=== PATIENT | female | born 1995 | race African-American/Black ===

== ENCOUNTER 2018-05-28 22:28 | Emergency (ER) | payer SELFPAY ==
[2018-05-28 22:48] VITALS: BP 104/68
[2018-05-28] MEDS ORDERED: KETOROLAC TROMETHAMINE INJ/PF 30 MG/1 ML SDV IV ONE (23:36)
--- NOTE | 2018-05-28 23:37 | ER Document Report ---
ED Medical Screen (RME) - General Chief Complaint: Nausea/Vomiting/Diarrhea Stated Complaint: NAUSEA/VOMITING Time Seen by Provider: 05/28/18 23:36 Notes: 22 years old female presents today with multiple complaints including left chest wall pain for a month, tachycardia, abdominal pain nausea and diarrhea. This is been going on for the last 2-3 days. TRAVEL OUTSIDE OF THE [place] IN LAST 30 DAYS: No - Related Data Allergies/Adverse Reactions: amoxicillin trihydrate [From Augmentin] Allergy (Verified 10/21/16 10:58) Potassium Clavulanate * [From Augmentin] Allergy (Verified 10/21/16 10:58) Past Medical History Pulmonary Medical History: Reports: Hx Asthma Neurological Medical History: Reports: Hx Migraine Renal/ Medical History: Reports: Hx Ovarian Cysts Psychiatric Medical History: Reports: Hx Depression Past Surgical History: Reports: Hx Adenoidectomy, Hx Orthopedic Surgery - Left shoulder x3, Hx Tonsillectomy - Immunizations Immunizations up to date: Yes Hx Diphtheria, Pertussis, Tetanus Vaccination: No Physical Exam - Vital signs Vitals: Temp Pulse Resp BP Pulse Ox 98.0 F 74 16 104/68 100 05/28/18 22:47 05/28/18 22:47 05/28/18 22:47 05/28/18 22:47 05/28/18 22:47 Course - Vital Signs Vital signs: Temp Pulse Resp BP Pulse Ox 98.0 F 74 16 104/68 100 05/28/18 22:47 05/28/18 22:47 05/28/18 22:47 05/28/18 22:47 05/28/18 22:47
[2018-05-28 23:54] LABS: ABSOLUTE EOSINOPHILS # (AUTO) 0.1 10^3/uL (0.0-0.6); ABSOLUTE MONOCYTES (AUTO) 0.7 10^3/uL (0.1-1.4); ABSOLUTE NEUT (AUTO) 3.3 10^3/uL (1.7-8.2); BASOPHILS % (AUTO) 0.4 % (0-2); EOSINOPHILS % (AUTO) 0.8 % (0-6); HEMATOCRIT 41.6 % (36.0-47.0); LYMPHOCYTES % (AUTO) 42.3 % (13-45); MEAN CORPUSCULAR HEMOGLOBIN 28.1 pg (27.0-33.4); MEAN CORPUSCULAR HGB CONC 33.5 g/dL (32.0-36.0); MEAN CORPUSCULAR VOLUME 84 fl (80-97); PLATELET COUNT 206 10^3/uL (150-450); RED BLOOD COUNT 4.96 10^6/uL (3.72-5.28); RED CELL DISTRIBUTION WIDTH 17.1 % (11.5-14.0); SEGMENTED NEUTROPHILS % (AUTO) 46.5 % (42-78); TOTAL CELLS COUNTED % (AUTO) 100 %
[2018-05-29 00:13] LABS: ALANINE AMINOTRANSFERASE 26 U/L (9-52); ALBUMIN 3.5 g/dL (3.5-5.0); ALKALINE PHOSPHATASE 88 U/L (38-126); ANION GAP 8 (5-19); ASPARTATE AMINO TRANSFERASE 20 U/L (14-36); BILIRUBIN,DIRECT 0.3 mg/dL (0.0-0.4); BILIRUBIN,TOTAL 0.3 mg/dL (0.2-1.3); BLOOD UREA NITROGEN 8 mg/dL (7-20); CALCIUM 8.8 mg/dL (8.4-10.2); CARBON DIOXIDE 28 mmol/L (22-30); CHLORIDE 104 mmol/L (98-107); GLUCOSE 75 mg/dL (75-110); POTASSIUM 3.5 mmol/L (3.6-5.0); SODIUM 140.4 mmol/L (137-145); TOTAL PROTEIN 6.7 g/dL (6.3-8.2)
--- NOTE | 2018-05-29 00:20 | ER Document Report ---
ED General - General Chief Complaint: Nausea/Vomiting/Diarrhea Stated Complaint: NAUSEA/VOMITING Time Seen by Provider: 05/28/18 23:36 Mode of Arrival: Ambulatory Information source: Patient Notes: 22-year-old female presents emergency department with complaints of left-sided chest wall pain that has been ongoing for the last month. It is intermittent in nature. Patient denies any alleviating or exacerbating factors. Patient states that the pain is worse with movement, palpation, coughing, deep breaths. She denies any alleviating factors. Patient has also had abdominal pain, nausea, vomiting, diarrhea for the last 3 days. TRAVEL OUTSIDE OF THE [place] IN LAST 30 DAYS: No - HPI Onset: Other - 1 month Onset/Duration: Gradual Quality of pain: Achy, Stabbing, Throbbing Severity: Moderate Associated symptoms: Diarrhea, Nausea, Vomiting Exacerbated by: Movement, Coughing, Deep breathing Relieved by: Denies Similar symptoms previously: Yes Recently seen / treated by doctor: No - Related Data Allergies/Adverse Reactions: amoxicillin trihydrate [From Augmentin] Allergy (Verified 10/21/16 10:58) Potassium Clavulanate * [From Augmentin] Allergy (Verified 10/21/16 10:58) Past Medical History - Social History Smoking Status: Never Smoker Family History: Reviewed & Not Pertinent, Other - ASTHMA Pulmonary Medical History: Reports: Hx Asthma Neurological Medical History: Reports: Hx Migraine Renal/ Medical History: Reports: Hx Ovarian Cysts Psychiatric Medical History: Reports: Hx Depression Past Surgical History: Reports: Hx Adenoidectomy, Hx Orthopedic Surgery - Left shoulder x3, Hx Tonsillectomy - Immunizations Immunizations up to date: Yes Hx Diphtheria, Pertussis, Tetanus Vaccination: No Review of Systems - Review of Systems Constitutional: No symptoms reported EENT: No symptoms reported Cardiovascular: No symptoms reported Respiratory: No symptoms reported Gastrointestinal: Abdominal pain, Diarrhea, Nausea, Vomiting Genitourinary: No symptoms reported Female Genitourinary: No symptoms reported Musculoskeletal: No symptoms reported Skin: No symptoms reported Hematologic/Lymphatic: No symptoms reported Neurological/Psychological: No symptoms reported -: Yes All other systems reviewed and negative Physical Exam - Vital signs Vitals: Temp Pulse Resp BP Pulse Ox 98.0 F 74 16 104/68 100 05/28/18 22:47 05/28/18 22:47 05/28/18 22:47 05/28/18 22:47 05/28/18 22:47 Interpretation: Normal - Notes Notes: PHYSICAL EXAMINATION: GENERAL: Well-appearing, well-nourished and in no acute distress. HEAD: Atraumatic, normocephalic. EYES: Pupils equal round and reactive to light, extraocular movements intact, conjunctiva are normal. ENT: Nares patent, oropharynx clear without exudates. Moist mucous membranes. NECK: Normal range of motion, supple without lymphadenopathy LUNGS: Breath sounds clear to auscultation bilaterally and equal. No wheezes rales or rhonchi. HEART: Regular rate and rhythm without murmurs. L anterior chest wall tenderness to palpation. ABDOMEN: Soft, nontender, nondistended abdomen. No guarding, no rebound. No masses appreciated. Female : deferred Musculoskeletal: Normal range of motion, no pitting or edema. No cyanosis. NEUROLOGICAL: Cranial nerves grossly intact. Normal speech, normal gait. Normal sensory, motor exams PSYCH: Normal mood, normal affect. SKIN: Warm, Dry, normal turgor, no rashes or lesions noted. Course - Re-evaluation Re-evalutation: 05/29/18 01:18 Patient feeling better after toradol. Chest xray does not show an acute process. Patient likely has costochondritis as she has reproducible chest wall tenderness to palpation. She has had this in the past and says that the pain feels similar in nature. Patient instructed to take anti-inflammatories for symptom relief, to follow-up with her primary care physician this week, and to return to the emergency department for any worsening symptoms. Patient is agreeable with the plan of care. - Vital Signs Vital signs: Temp Pulse Resp BP Pulse Ox 98.0 F 74 16 104/68 100 05/28/18 22:47 05/28/18 22:47 05/28/18 22:47 05/28/18 22:47 05/28/18 22:47 - Laboratory Result Diagrams: 05/28/18 23:20 05/28/18 23:20 Laboratory results interpreted by me: 05/28/18 05/28/18 23:20 23:20 RDW 17.1 H Potassium 3.5 L - EKG Interpretation by Me Additional EKG results interpreted by me: 05/29/18 00:15 EKG: Ventricular rate 75, IN interval 184, QRS duration 82, QTc 425, normal sinus rhythm, no ischemic changes. EKG similar to that done on 01/25/15. Discharge - Discharge Clinical Impression: Acute costochondritis Condition: Good Disposition: HOME, SELF-CARE Instructions: Costochondritis ([facility]) Prescriptions: Naproxen 500 mg PO BID #15 tablet
[2018-05-29 00:29] LABS: URINE AMPHETAMINES SCREEN NEGATIVE; URINE BARBITURATES SCREEN NEGATIVE; URINE BENZODIAZEPINES SCREEN NEGATIVE; URINE COCAINE SCREEN NEGATIVE; URINE MARIJUANA (THC) SCREEN UNCONFIRMED POSITIVE; URINE METHADONE SCREEN NEGATIVE; URINE PHENCYCLIDINE SCREEN NEGATIVE
--- NOTE | 2018-05-29 01:08 | RADIOLOGY REPORT (SQ) ---
CXR- 1 VIEW Clinical history: Chest pain Comparison: None. Technique: 1 view of the chest submitted for review. Findings: The lungs are adequately expanded without evidence of infiltrate and/or effusion. The cardiac silhouette measures borderline enlarged allowing for portable upright technique. Pulmonary vascularity is unremarkable. Osseous structures are within normal limits for age. There are some circular metallic density which looks like a neck lists or bracelet overlying the soft tissues of the left side of the neck limiting evaluation. Impression: Borderline cardiomegaly allowing for portable upright technique in this patient with chest pain.
[2018-05-29] MEDS ORDERED: HYDROCODONE/ACETAMINOPHEN 5-325 MG TABLET PO ONE (02:28)
--- NOTE | 2018-05-29 21:40 | EKG REPORT ---
SEVERITY:- NORMAL ECG - SINUS RHYTHM : Confirmed by: Halina Leone MD 29-May-2018 21:38:54
== END 2018-05-29 02:43 | disposition home or self-care (01) ==
LOC: ER 22:28
DX: M94.0 Chondrocostal junction syndrome [Tietze] (principal); R07.89 Other chest pain; R10.9 Unspecified abdominal pain; R11.2 Nausea with vomiting, unspecified; R19.7 Diarrhea, unspecified; J45.909 Unspecified asthma, uncomplicated; Z88.0 Allergy status to penicillin
CPT/HCPCS: 93005; 99285; 96374; 36415; 85025; 81025; 80053; 80307; 71045; 93010; J1885

== ENCOUNTER 2019-03-03 10:43 | Emergency (ER) | payer MEDICAID ==
[2019-03-03] MEDS ORDERED: IPRATROPIUM/ALBUTEROL 0.5-2.5 MG/3 ML AMPUL NEB ONE (11:39)
--- NOTE | 2019-03-03 11:42 | ER Document Report ---
ED Medical Screen (RME) - General Chief Complaint: Breathing Difficulty Stated Complaint: DIFFICULTY BREATHING Time Seen by Provider: 03/03/19 11:32 Mode of Arrival: Ambulatory TRAVEL OUTSIDE OF THE [place] IN LAST 30 DAYS: No - HPI Patient complains to provider of: Shortness of breath Notes: 03/03/19 11:40 Patient is here with complaints of feeling short of breath. The patient is currently . She does have a history of asthma. She states that she woke up around 4 AM feeling short of breath. She still feels short of breath. She denies any chest pain. No fever. She is used her rescue inhalers at home with no significant improvement. She denies any abdominal pain. No bleeding. She denies any recent long trips or surgeries, history of DVT or PE. She denies any other chronic medical problems. Exam: Patient is in no distress, nontoxic appearing. Lungs are clear but slightly diminished in the bilateral bases. Plan: Basic labs, EKG, breathing treatment, reevaluation by staff in the back. An initial examination was made on the patient as part of the triage process, and it was determined a more comprehensive evaluation was necessary. Initial labs were ordered and patient was transferred to another provider in the ED who assumed care and finished evaluation and plan. - Related Data Allergies/Adverse Reactions: amoxicillin trihydrate [From Augmentin] Allergy (Verified 03/03/19 10:48) Potassium Clavulanate * [From Augmentin] Allergy (Verified 03/03/19 10:48) Past Medical History - Social History Frequency of alcohol use: None Drug Abuse: None Pulmonary Medical History: Reports: Hx Asthma Neurological Medical History: Reports: Hx Migraine Renal/ Medical History: Reports: Hx Ovarian Cysts. Denies: Hx Peritoneal Dialysis Psychiatric Medical History: Reports: Hx Depression Past Surgical History: Reports: Hx Adenoidectomy, Hx Orthopedic Surgery - Left shoulder x3, Hx Tonsillectomy - Immunizations Immunizations up to date: Yes Hx Diphtheria, Pertussis, Tetanus Vaccination: No Physical Exam - Vital signs Vitals: Temp Pulse Resp BP Pulse Ox 98.5 F 104 H 16 110/70 97 03/03/19 11:00 03/03/19 11:00 03/03/19 11:00 03/03/19 11:00 03/03/19 11:00 Course - Vital Signs Vital signs: Temp Pulse Resp BP Pulse Ox 98.5 F 104 H 16 110/70 97 03/03/19 11:00 03/03/19 11:00 03/03/19 11:00 03/03/19 11:00 03/03/19 11:00
[2019-03-03 12:00] LABS: ABSOLUTE EOSINOPHILS # (AUTO) 0.1 10^3/uL (0.0-0.6); ABSOLUTE MONOCYTES (AUTO) 0.6 10^3/uL (0.1-1.4); ABSOLUTE NEUT (AUTO) 7.6 10^3/uL (1.7-8.2); BASOPHILS % (AUTO) 0.2 % (0-2); EOSINOPHILS % (AUTO) 1.1 % (0-6); HEMATOCRIT 37.4 % (36.0-47.0); HEMOGLOBIN 12.6 g/dL (12.0-15.5); LYMPHOCYTES % (AUTO) 19.3 % (13-45); MEAN CORPUSCULAR HEMOGLOBIN 28.5 pg (27.0-33.4); MEAN CORPUSCULAR HGB CONC 33.6 g/dL (32.0-36.0); MEAN CORPUSCULAR VOLUME 85 fl (80-97); MONOCYTES % (AUTO) 6.1 % (3-13); PLATELET COUNT 183 10^3/uL (150-450); RED BLOOD COUNT 4.41 10^6/uL (3.72-5.28); RED CELL DISTRIBUTION WIDTH 16.1 % (11.5-14.0); SEGMENTED NEUTROPHILS % (AUTO) 73.3 % (42-78); TOTAL CELLS COUNTED % (AUTO) 100 %; WHITE BLOOD COUNT 10.3 10^3/uL (4.0-10.5)
[2019-03-03 12:25] LABS: ALANINE AMINOTRANSFERASE 17 U/L (9-52); ALKALINE PHOSPHATASE 70 U/L (38-126); ASPARTATE AMINO TRANSFERASE 17 U/L (14-36); BILIRUBIN,DIRECT 0.1 mg/dL (0.0-0.4); BILIRUBIN,TOTAL 0.1 mg/dL (0.2-1.3); BLOOD UREA NITROGEN 8 mg/dL (7-20); CALCIUM 9.4 mg/dL (8.4-10.2); GLUCOSE 77 mg/dL (75-110); POTASSIUM 3.6 mmol/L (3.6-5.0)
[2019-03-03 12:30] LABS: CARBON DIOXIDE 24 mmol/L (22-30); CHLORIDE 108 mmol/L (98-107); SODIUM 135.8 mmol/L (137-145)
[2019-03-03 12:34] LABS: ANION GAP 4 (5-19)
[2019-03-03 13:08] VITALS: BP 112/60
--- NOTE | 2019-03-03 17:44 | ER Document Report ---
Entered by LAURA THIBODEAUX SCRIBE 03/03/19 0524 Acting as scribe for:MARY MACKEY MD ED General - General Chief Complaint: Breathing Difficulty Stated Complaint: DIFFICULTY BREATHING Time Seen by Provider: 03/03/19 11:32 Primary Care Provider: [facility] [Provider Group] - Follow up as needed Mode of Arrival: Ambulatory Information source: Patient Notes: Patient is a 23-year-old female presenting to the emergency department complaint of shortness of breath onset around 0400 this morning. Patient states she woke up from her sleep having difficulty breathing. She states she used her rescue inhaler 2 times although it did not alleviate her symptoms. She states she currently feels better after receiving a breathing treatment. Patient reports being approximately 3-1/2 months . She is taking vitamins. TRAVEL OUTSIDE OF THE [place] IN LAST 30 DAYS: No - Related Data Allergies/Adverse Reactions: amoxicillin trihydrate [From Augmentin] Allergy (Verified 03/03/19 10:48) Potassium Clavulanate * [From Augmentin] Allergy (Verified 03/03/19 10:48) Past Medical History - General Information source: Patient - Social History Smoking Status: Never Smoker Cigarette use (# per day): No Chew tobacco use (# tins/day): No Frequency of alcohol use: None Drug Abuse: None Family History: Reviewed & Not Pertinent, Other - ASTHMA Patient has suicidal ideation: No Patient has homicidal ideation: No Pulmonary Medical History: Reports: Hx Asthma Neurological Medical History: Reports: Hx Migraine Renal/ Medical History: Reports: Hx Ovarian Cysts Psychiatric Medical History: Reports: Hx Depression Past Surgical History: Reports: Hx Adenoidectomy, Hx Orthopedic Surgery - Left shoulder x3, Hx Tonsillectomy - Immunizations Immunizations up to date: Yes Hx Diphtheria, Pertussis, Tetanus Vaccination: No Review of Systems - Review of Systems Constitutional: No symptoms reported EENT: No symptoms reported Cardiovascular: No symptoms reported Respiratory: See HPI, Short of breath Gastrointestinal: No symptoms reported Genitourinary: No symptoms reported Female Genitourinary: See HPI, Musculoskeletal: No symptoms reported Skin: No symptoms reported Hematologic/Lymphatic: No symptoms reported Neurological/Psychological: No symptoms reported -: Yes All other systems reviewed and negative Physical Exam - Vital signs Vitals: Temp Pulse Resp BP Pulse Ox 98.5 F 104 H 16 110/70 97 03/03/19 11:00 03/03/19 11:00 03/03/19 11:00 03/03/19 11:00 03/03/19 11:00 - Notes Notes: GENERAL: Alert, interacts well. No acute distress. HEAD: Normocephalic, atraumatic. EYES: Pupils equal, round, and reactive to light. Extraocular movements intact. ENT: Oral mucosa moist, tongue midline. NECK: Full range of motion. Supple. Trachea midline. LUNGS: Clear to auscultation bilaterally, no wheezes, rales, or rhonchi. No respiratory distress. HEART: Regular rate and rhythm. No murmurs, gallops, or rubs. ABDOMEN: Soft, non-tender. Non-distended. Bowel sounds present in all 4 quadrants. No guarding, rigidity, or rebound. EXTREMITIES: Moves all 4 extremities spontaneously. No edema. NEUROLOGICAL: Alert and oriented x3. Normal speech. PSYCH: Normal affect, normal mood. SKIN: Warm, dry, normal turgor. No rashes or lesions noted. Course - Vital Signs Vital signs: Temp Pulse Resp BP Pulse Ox 98.5 F 104 H 16 110/70 97 03/03/19 11:00 03/03/19 11:00 03/03/19 11:00 03/03/19 11:00 03/03/19 11:00 - Laboratory Result Diagrams: 03/03/19 11:46 03/03/19 11:46 Laboratory results interpreted by me: 03/03/19 03/03/19 11:46 11:46 RDW 16.1 H Sodium 135.8 L Chloride 108 H Anion Gap 4 L Total Bilirubin 0.1 L Total Protein 6.0 L Albumin 3.0 L Discharge - Discharge Clinical Impression: Asthma exacerbation, mild Condition: Stable Disposition: HOME, SELF-CARE Additional Instructions: Asthma You have been diagnosed as having asthma. This is a condition where there is episodic tightness in the bronchial tubes. Allergies, infections, and polluted or cold air may be contributing factors. Emergency treatment of a severe asthma attack may include adrenaline shots, or bronchodilator aerosol. You may feel lightheaded, have a decreased exercise tolerance and a rapid pulse for an hour or two. Rest and get plenty of fluids. Home treatment of asthma requires bronchodilator drugs. These can be administered by injection, inhalation, or by mouth. Antibiotics and corticosteroids may be required for some patients. You should avoid chemical fumes, dusts, pollens, and exercising in very cold or dry air. If you smoke, stop!! If you develop a fever, increased wheezing, chest pain, or severe shortness of breath, you should contact the doctor immediately Use the nebulizer for wheezing when needed. Be sure you always have an albuterol rescue inhaler with you when you leave your house. Follow-up with [facility] for your care, and management of your asthma if needed. RETURN TO THE EMERGENCY ROOM IF ANY NEW OR WORSENING SYMPTOMS. Prescriptions: Albuterol Sulfate [Ventolin 0.083% Neb 2.5 mg/3 mL Ampul] 1 vial NEB Q4 PRN #50 vial PRN Reason: Referrals: [facility] [Provider Group] - Follow up as needed Scribe Attestation: 03/03/19 12:52 I personally performed the services described in the documentation, reviewed and edited the documentation which was dictated to the scribe in my presence, and it accurately records my words and actions. I personally performed the services described in the documentation, reviewed and edited the documentation which was dictated to the scribe in my presence, and it accurately records my words and actions.
--- NOTE | 2019-03-03 20:02 | EKG REPORT ---
SEVERITY:- ABNORMAL ECG - SINUS RHYTHM PROBABLE LEFT ATRIAL ABNORMALITY PROBABLE LEFT VENTRICULAR HYPERTROPHY ABNORMAL T, CONSIDER ISCHEMIA, INFERIOR LEADS : Confirmed by: Halina Leone MD 03-Mar-2019 20:00:47
== END 2019-03-03 13:08 | disposition home or self-care (01) ==
LOC: ER 10:43
DX: O99.512 Diseases of the respiratory system complicating pregnancy, second trimester (principal); J45.21 Mild intermittent asthma with (acute) exacerbation; O26.892 Other specified pregnancy related conditions, second trimester; R06.02 Shortness of breath; Z3A.14 14 weeks gestation of pregnancy
CPT/HCPCS: 93005; 94640; 99285; 36415; 85025; 80053; 93010; J7620

== ENCOUNTER 2019-07-04 18:28 | Outpatient (CLI) | payer MEDICAID ==
[2019-07-04 19:27] LABS: URINE AMPHETAMINES SCREEN NEGATIVE; URINE BARBITURATES SCREEN NEGATIVE; URINE BENZODIAZEPINES SCREEN NEGATIVE; URINE COCAINE SCREEN NEGATIVE; URINE MARIJUANA (THC) SCREEN NEGATIVE; URINE METHADONE SCREEN NEGATIVE; URINE PHENCYCLIDINE SCREEN NEGATIVE
[2019-07-04 19:38] LABS: APPEARANCE,URINE SLIGHTLY-CLOUDY; BILIRUBIN,URINE NEGATIVE (NEGATIVE); COLOR,URINE YELLOW; GLUCOSE, URINE NEGATIVE (NEGATIVE); KETONES,URINE NEGATIVE (NEGATIVE); LEUKOCYTE ESTERASE,URINE TRACE (NEGATIVE); NITRITE,URINE NEGATIVE (NEGATIVE); PROTEIN,URINE NEGATIVE (NEGATIVE); URINE SPECIFIC GRAVITY 1.011; UROBILINOGEN,URINE NEGATIVE mg/dL (<2.0)
[2019-07-04] MEDS ORDERED: ACETAMINOPHEN WITH CODEINE #3 TABLET PO ONE (20:48)
--- NOTE | 2019-07-04 21:00 | Non Stress Test Report ---
Non Stress Test Datetime Report Generated by CPN: 07/04/2019 21:00 DEMOGRAPHIC EGA NST: 35.2 INDICATION Indication for Study: Ordered by Provider URINE RESULTS Urine Protein, NST: Negative Urine Ketones - NST: Negative Urine Glucose - NST: Negative Urine Blood - NST: Negative MONITORING Monitor Explained: Monitor Explained; Test Explained; Patient Verbalized Understanding Time on Monitor: 07/04/2019 19:09 Time off Monitor: 07/04/2019 20:44 NST Duration: 95 NST INTERVENTIONS NST Interventions: PO Hydration Physician Notified NST: Dr. Zhao BABY A: [id number] BABY A Movement : Present Contraction Frequency : Occasional FHR Baseline : 140 Accelerations : 15X15 Decelerations : None Variability : Moderate 6-25bpm NST Review: Meets Criteria for Reactive NST NST Review and Verified By : Hesham Goldman RN NST Results: Reactive NST REPORT Report Trigger: Send Report
[2019-07-04] MEDS ORDERED: ACETAMINOPHEN WITH CODEINE #3 TABLET ONE (21:17)
== END 2019-07-04 21:23 | disposition home or self-care (01) ==
LOC: LC 18:28
PROVIDERS: ATTEND Obstetrics & Gynecology
PROC: 4A1HXCZ Monitoring of Products of Conception, Cardiac Rate, External Approach (ICD-10-PCS; principal; 2019-07-04)
DX: O47.03 False labor before 37 completed weeks of gestation, third trimester (principal); Z3A.35 35 weeks gestation of pregnancy
CPT/HCPCS: 59025; 80307; 81001

== ENCOUNTER 2019-07-18 17:07 | Outpatient (CLI) | payer MEDICAID ==
[2019-07-18 18:02] LABS: ABSOLUTE LYMPHOCYTES (AUTO) 2.6 10^3/uL (0.5-4.7); ABSOLUTE NEUT (AUTO) 7.3 10^3/uL (1.7-8.2); BASOPHILS % (AUTO) 0.1 % (0-2); EOSINOPHILS % (AUTO) 0.2 % (0-6); HEMATOCRIT 38.2 % (36.0-47.0); HEMOGLOBIN 12.8 g/dL (12.0-15.5); LYMPHOCYTES % (AUTO) 23.6 % (13-45); MEAN CORPUSCULAR HEMOGLOBIN 29.2 pg (27.0-33.4); MEAN CORPUSCULAR HGB CONC 33.6 g/dL (32.0-36.0); MEAN CORPUSCULAR VOLUME 87 fl (80-97); MONOCYTES % (AUTO) 9.4 % (3-13); PLATELET COUNT 157 10^3/uL (150-450); RED BLOOD COUNT 4.39 10^6/uL (3.72-5.28); RED CELL DISTRIBUTION WIDTH 15.6 % (11.5-14.0); SEGMENTED NEUTROPHILS % (AUTO) 66.7 % (42-78); TOTAL CELLS COUNTED % (AUTO) 100 %; WHITE BLOOD COUNT 10.9 10^3/uL (4.0-10.5)
[2019-07-18 18:10] LABS: INTERNATIONAL RATION (INR) 0.98
[2019-07-18 18:11] LABS: PARTIAL THROMBOPLASTIN TIME 25.1 SEC (23.5-35.8)
[2019-07-18 18:21] LABS: APPEARANCE,URINE SLIGHTLY-CLOUDY; BILIRUBIN,URINE NEGATIVE (NEGATIVE); COLOR,URINE YELLOW; GLUCOSE, URINE NEGATIVE (NEGATIVE); KETONES,URINE NEGATIVE (NEGATIVE); LEUKOCYTE ESTERASE,URINE SMALL (NEGATIVE); NITRITE,URINE NEGATIVE (NEGATIVE); PROTEIN,URINE NEGATIVE (NEGATIVE); URINE SPECIFIC GRAVITY 1.012; UROBILINOGEN,URINE NEGATIVE mg/dL (<2.0)
[2019-07-18 18:31] LABS: URINE AMPHETAMINES SCREEN NEGATIVE; URINE BARBITURATES SCREEN NEGATIVE; URINE BENZODIAZEPINES SCREEN NEGATIVE; URINE COCAINE SCREEN NEGATIVE; URINE MARIJUANA (THC) SCREEN NEGATIVE; URINE METHADONE SCREEN NEGATIVE; URINE PHENCYCLIDINE SCREEN NEGATIVE
--- NOTE | 2019-07-18 19:44 | RADIOLOGY REPORT (SQ) ---
EXAM DESCRIPTION: U/S OB LIMITED COMPLETED DATE/TIME: 07/18/2019 7:12 pm REASON FOR STUDY: sp fall onto bottom COMPARISON: None. TECHNIQUE: Limited transabdominal grayscale ultrasound for evaluation of specific requested obstetri angel parameters. LIMITATIONS: None. FINDINGS: CERVICAL LENGTH: 3.0 cm Closed. JUAN FRANCISCO: 15.4 cm. FHR: 144 beats per minute. PRESENTATION: Cephalic. PLACENTA: Anterior ANATOMY: Not assessed OTHER: No other significant findings. IMPRESSION: LIMITED OBSTETRICAL ULTRASOUND WITH MEASURED PARAMETERS DELINEATED ABOVE. Trimester of : Third trimester - 28 weeks to delivery. TECHNICAL DOCUMENTATION: JOB ID: [id number] [employer]- All Rights Reserved Reading location - IP/workstation name: [email or web address]
[2019-07-18] MEDS ORDERED: ACETAMINOPHEN WITH CODEINE #3 TABLET PO ONE (20:00)
[2019-07-18] MEDS ORDERED: ACETAMINOPHEN WITH CODEINE #3 TABLET ONE (20:14)
[2019-07-18 21:31] LABS: RHOGAM DOSE INDICATED 0 VIAL(S)
== END 2019-07-18 23:48 | disposition home or self-care (01) ==
LOC: LC 17:07
PROVIDERS: ATTEND Student in an Organized Health Care Education/Training Program
PROC: 4A1HXCZ Monitoring of Products of Conception, Cardiac Rate, External Approach (ICD-10-PCS; principal; 2019-07-18)
DX: O9A.213 Injury, poisoning and certain other consequences of external causes complicating pregnancy, third trimester (principal); Z3A.37 37 weeks gestation of pregnancy; W19.XXXA Unspecified fall, initial encounter
CPT/HCPCS: 36415; 59025; 76815; 80307; 81005; 85025; 85460; 85610; 85730

== ENCOUNTER 2019-08-05 16:29 | Emergency (ER) | payer MEDICAID ==
[2019-08-05 16:48] VITALS: BP 117/64
--- NOTE | 2019-08-05 16:55 | ER Document Report ---
ED Medical Screen (RME) - General Chief Complaint: Chest Pain Stated Complaint: CHEST PAIN Time Seen by Provider: 08/05/19 16:47 Primary Care Provider: MARCELO YODER MD [Primary Care Provider] - Follow up as needed Mode of Arrival: Wheelchair Information source: Patient Notes: This 23-year-old female G2, P0 40 weeks presents emergency department with chest pain that started this morning upon waking. Mom reports she heard her coughing last night. Denies abdominal pain. Denies trauma. Reports she did fall and slip at [facility] July 18. She was evaluated in L&D at that time. No history of cardiac disease but she does have asthma. I have greeted and performed a rapid initial assessment of this patient. A comprehensive ED assessment and evaluation of the patient, analysis of test results and completion of the medical decision making process will be conducted by additional ED providers. Dictation of this chart was performed using voice recognition software; therefore, there may be some unintended grammatical errors. TRAVEL OUTSIDE OF THE [place] IN LAST 30 DAYS: No - Related Data Allergies/Adverse Reactions: amoxicillin trihydrate [From Augmentin] Allergy (Verified 08/05/19 16:31) Potassium Clavulanate * [From Augmentin] Allergy (Verified 08/05/19 16:31) Past Medical History Pulmonary Medical History: Reports: Hx Asthma Neurological Medical History: Reports: Hx Migraine Renal/ Medical History: Reports: Hx Ovarian Cysts. Denies: Hx Peritoneal Dialysis Psychiatric Medical History: Reports: Hx Depression Past Surgical History: Reports: Hx Adenoidectomy, Hx Orthopedic Surgery - Left shoulder x3, Hx Tonsillectomy - Immunizations Immunizations up to date: Yes Hx Diphtheria, Pertussis, Tetanus Vaccination: No Physical Exam - Vital signs Vitals: Temp Pulse Resp BP Pulse Ox 98.6 F 94 18 117/64 97 08/05/19 16:46 08/05/19 16:46 08/05/19 16:46 08/05/19 16:46 08/05/19 16:46 Course - Vital Signs Vital signs: Temp Pulse Resp BP Pulse Ox 98.6 F 94 18 117/64 97 08/05/19 16:46 08/05/19 16:46 08/05/19 16:46 08/05/19 16:46 08/05/19 16:46 - Laboratory Result Diagrams: 08/05/19 17:04 08/05/19 17:04 Laboratory results interpreted by me: 08/05/19 08/05/19 17:04 17:04 RDW 16.4 H Sodium 135.8 L BUN 5 L Alkaline Phosphatase 150 H Total Protein 5.7 L Albumin 2.9 L Doctor's Discharge - Discharge Referrals: MARCELO YODER MD [Primary Care Provider] - Follow up as needed
[2019-08-05 17:18] LABS: ABSOLUTE LYMPHOCYTES (AUTO) 1.7 10^3/uL (0.5-4.7); ABSOLUTE MONOCYTES (AUTO) 0.7 10^3/uL (0.1-1.4); ABSOLUTE NEUT (AUTO) 7.5 10^3/uL (1.7-8.2); BASOPHILS % (AUTO) 0.2 % (0-2); EOSINOPHILS % (AUTO) 0.2 % (0-6); HEMATOCRIT 39.3 % (36.0-47.0); HEMOGLOBIN 13.2 g/dL (12.0-15.5); LYMPHOCYTES % (AUTO) 16.7 % (13-45); MEAN CORPUSCULAR HEMOGLOBIN 29.3 pg (27.0-33.4); MEAN CORPUSCULAR HGB CONC 33.7 g/dL (32.0-36.0); MEAN CORPUSCULAR VOLUME 87 fl (80-97); MONOCYTES % (AUTO) 7.4 % (3-13); PLATELET COUNT 150 10^3/uL (150-450); RED BLOOD COUNT 4.52 10^6/uL (3.72-5.28); RED CELL DISTRIBUTION WIDTH 16.4 % (11.5-14.0); SEGMENTED NEUTROPHILS % (AUTO) 75.5 % (42-78); TOTAL CELLS COUNTED % (AUTO) 100 %; WHITE BLOOD COUNT 9.9 10^3/uL (4.0-10.5)
[2019-08-05 17:35] LABS: ALBUMIN 2.9 g/dL (3.5-5.0); ALKALINE PHOSPHATASE 150 U/L (38-126); ANION GAP 6 (5-19); ASPARTATE AMINO TRANSFERASE 30 U/L (14-36); BILIRUBIN,DIRECT 0.1 mg/dL (0.0-0.4); BILIRUBIN,TOTAL 0.2 mg/dL (0.2-1.3); BLOOD UREA NITROGEN 5 mg/dL (7-20); CALCIUM 9.3 mg/dL (8.4-10.2); CARBON DIOXIDE 25 mmol/L (22-30); CHLORIDE 105 mmol/L (98-107); CREATINE KINASE 133 U/L (30-135); GLUCOSE 79 mg/dL (75-110); POTASSIUM 3.8 mmol/L (3.6-5.0); TOTAL PROTEIN 5.7 g/dL (6.3-8.2)
--- NOTE | 2019-08-05 17:37 | RADIOLOGY REPORT (SQ) ---
EXAM DESCRIPTION: CHEST 2 VIEWS COMPLETED DATE/TIME: 08/05/2019 5:17 pm REASON FOR STUDY: cp COMPARISON: 08/25/2016 EXAM PARAMETERS: NUMBER OF VIEWS: two views TECHNIQUE: Digital Frontal and Lateral radiographic views of the chest acquired. RADIATION DOSE: NA LIMITATIONS: none FINDINGS: LUNGS AND PLEURA: No opacities, masses or pneumothorax. No pleural effusion. MEDIASTINUM AND HILAR STRUCTURES: No masses or contour abnormalities. HEART AND VASCULAR STRUCTURES: Heart normal size. No evidence for failure. BONES: No acute findings. HARDWARE: None in the chest. OTHER: No other significant finding. IMPRESSION: NO ACUTE RADIOGRAPHIC FINDING IN THE CHEST. TECHNICAL DOCUMENTATION: JOB ID: [id number] [employer]- All Rights Reserved Reading location - IP/workstation name: [email or web address]
--- NOTE | 2019-08-05 18:26 | ER Document Report ---
ED GI/ - General Chief Complaint: Chest Pain Stated Complaint: CHEST PAIN Time Seen by Provider: 08/05/19 16:47 Primary Care Provider: MARCELO YODER MD [Primary Care Provider] - Follow up as needed Mode of Arrival: Wheelchair Information source: Patient Notes: 23-year-old female presented to ED for complaint of chest discomfort. She states she had some discomfort since waking. Mother states she was coughing last night. Patient is a 23-year-old 2 para 0 female who is 40 weeks . She is due tomorrow. She states she went to the [facility] and then was sent to the emergency room to evaluate for her chest discomfort and cough. TRAVEL OUTSIDE OF THE [place] IN LAST 30 DAYS: No - HPI Patient complains to provider of: - 40 weeks, Other - Short of breath and cough Onset: Yesterday Timing/Duration: Gradual Quality of pain: Pressure Severity at maximum: Mild Severity in ED: Mild Pain Level: 6 - [phone] Location: Chest pain - discomfort at 40 weeks with cough Vaginal bleeding (Compared to normal period): None Menstrual period history: - 40 weeks Exacerbated by: Supine, Movement, Coughing Relieved by: Denies Similar symptoms previously: Yes Recently seen / treated by doctor: Yes - Related Data Allergies/Adverse Reactions: amoxicillin trihydrate [From Augmentin] Allergy (Verified 08/05/19 22:14) Potassium Clavulanate * [From Augmentin] Allergy (Verified 08/05/19 22:14) Past Medical History - General Information source: Patient - Social History Smoking Status: Former Smoker Frequency of alcohol use: None Drug Abuse: None Lives with: Family Family History: Reviewed & Not Pertinent, Other - ASTHMA Patient has suicidal ideation: No Patient has homicidal ideation: No - Past Medical History Cardiac Medical History: Reports: None Pulmonary Medical History: Reports: Hx Asthma EENT Medical History: Reports: None Neurological Medical History: Reports: Hx Migraine Endocrine Medical History: Reports: None Renal/ Medical History: Reports: Hx Ovarian Cysts Malignancy Medical History: Reports: None GI Medical History: Reports: None Musculoskeletal Medical History: Reports None Skin Medical History: Reports None Psychiatric Medical History: Reports: Hx Depression Traumatic Medical History: Reports: None Infectious Medical History: Reports: None Past Surgical History: Reports: Hx Adenoidectomy, Hx Orthopedic Surgery - Left shoulder x3, Hx Tonsillectomy - Immunizations Immunizations up to date: Yes Hx Diphtheria, Pertussis, Tetanus Vaccination: No Review of Systems - Review of Systems Constitutional: No symptoms reported EENT: No symptoms reported Cardiovascular: Chest pain - discomfort Respiratory: Cough Gastrointestinal: No symptoms reported Genitourinary: No symptoms reported Female Genitourinary: Musculoskeletal: No symptoms reported Skin: No symptoms reported Hematologic/Lymphatic: No symptoms reported Neurological/Psychological: No symptoms reported -: Yes All other systems reviewed and negative Physical Exam - Vital signs Vitals: Temp Pulse Resp BP Pulse Ox 98.6 F 94 18 117/64 97 08/05/19 16:46 08/05/19 16:46 08/05/19 16:46 08/05/19 16:46 08/05/19 16:46 Interpretation: Normal - General General appearance: Appears well, Alert - HEENT Head: Normocephalic, Atraumatic Eyes: Normal Pupils: PERRL - Respiratory Respiratory status: No respiratory distress Chest status: Nontender Breath sounds: Normal Chest palpation: Normal - Cardiovascular Rhythm: Regular Heart sounds: Normal auscultation Murmur: No - Abdominal Inspection: Gravid female - 40 weeks due tomorrow Distension: No distension Bowel sounds: Normal Tenderness: Nontender Organomegaly: No organomegaly - Back Back: Normal, Nontender - Extremities General upper extremity: Normal inspection, Nontender, Normal color, Normal ROM, Normal temperature General lower extremity: Normal inspection, Nontender, Normal color, Normal ROM, Normal temperature, Normal weight bearing. No: Clarisa's sign - Neurological Neuro grossly intact: Yes Cognition: Normal Orientation: AAOx4 Faber Coma Scale Eye Opening: Spontaneous Ludwig Coma Scale Verbal: Oriented Faber Coma Scale Motor: Obeys Commands Ludwig Coma Scale Total: 15 Speech: Normal Motor strength normal: LUE, RUE, LLE, RLE Sensory: Normal - Psychological Associated symptoms: Normal affect, Normal mood - Skin Skin Temperature: Warm Skin Moisture: Dry Skin Color: Normal Course - Re-evaluation Re-evalutation: 08/06/19 01:59 X-ray and labs were discussed with patient heart tones were completed. Patient was discharged with instructions to follow-up with labor and delivery before going home due to her low back pain at 40 weeks gestation. Patient was taken up to labor and delivery after her discharge. - Vital Signs Vital signs: Temp Pulse Resp BP Pulse Ox 98.6 F 94 18 117/64 97 08/05/19 16:46 08/05/19 16:46 08/05/19 16:46 08/05/19 16:46 08/05/19 16:46 - Laboratory Result Diagrams: 08/05/19 17:04 08/05/19 17:04 Laboratory results interpreted by me: 08/05/19 08/05/19 17:04 17:04 RDW 16.4 H Sodium 135.8 L BUN 5 L Alkaline Phosphatase 150 H Total Protein 5.7 L Albumin 2.9 L - Diagnostic Test Radiology reviewed: Image reviewed, Reports reviewed Discharge - Discharge Clinical Impression: chest discomfort 40 week , low back pain 40 weeks Condition: Stable Disposition: HOME, SELF-CARE Additional Instructions: CHEST PAIN OF UNCLEAR CAUSE: The exact cause of your chest pain isn't clear. Fortunately, there is no evidence of a dangerous medical condition. Further testing may be required to find the source of the pain. Most often, we find that this pain is coming from the chest wall -- the muscles or rib joints in the chest. But chest pain can come from the lung and lung lining, the esophagus, the heart valves or heart lining, and even the sto mach or gallbladder. Rest. Eat lightly until the pain is gone. We may prescribe medicine for pain and inflammation. You should call the physician immediately if the pain radiates to the sh oulder, jaw or arms; if you start to run a fever or develop a cough; or if you develop shortness of breath, or other new or alarming symptoms. NORMAL EXAM AND WORKUP: At this time, your examination and workup show no significant abnormality. No significant abnormal physical findings were noted. All laboratory, EKG, and imaging (x-ray, CT scans, ultrasound) studies that were ordered show no significant abnormality. Although your examination and all studies that were ordered showed no significant abnormal finding, there are no examinations and no studies that are 100% accurate. There is always the possibility that some abnormality could exist and not be detected with physical examination or within the limits and capabilities of laboratory and other studies. You should return or follow up as you were instructed on your visit today for further evaluation if your symptoms do not resolve. As you are 40 weeks and having low back pain I would recommend you follow-up with labor and delivery. I have called labor and delivery and informed them that she will be coming up as soon as you get discharged. FOLLOW-UP CARE: If you have been referred to a physician for follow-up care, call the physicians office for an appointment as you were instructed or within the next two days. If you experience worsening or a significant change in your symptoms, notify the physician immediately or return to the Emergency Department at any time for re-evaluation. Referrals: MARCELO YODER MD [Primary Care Provider] - Follow up as needed
--- NOTE | 2019-08-05 18:38 | EKG REPORT ---
SEVERITY:- ABNORMAL ECG - SINUS TACHYCARDIA PROBABLE LEFT ATRIAL ABNORMALITY NONSPECIFIC T ABNORMALITIES, INFERIOR LEADS LVH : Confirmed by: Kemal Aguilera MD 05-Aug-2019 18:37:30
[2019-08-05 18:57] LABS: APPEARANCE,URINE SLIGHTLY-CLOUDY; BILIRUBIN,URINE NEGATIVE (NEGATIVE); COLOR,URINE STRAW; GLUCOSE, URINE NEGATIVE (NEGATIVE); KETONES,URINE NEGATIVE (NEGATIVE); LEUKOCYTE ESTERASE,URINE NEGATIVE (NEGATIVE); NITRITE,URINE NEGATIVE (NEGATIVE); PROTEIN,URINE NEGATIVE (NEGATIVE); URINE SPECIFIC GRAVITY 1.005; UROBILINOGEN,URINE NEGATIVE mg/dL (<2.0)
== END 2019-08-05 19:25 | disposition home or self-care (01) ==
LOC: ER 16:29
DX: O26.893 Other specified pregnancy related conditions, third trimester (principal); R07.9 Chest pain, unspecified; R05 Cough; R06.02 Shortness of breath; O99.89 Other specified diseases and conditions complicating pregnancy, childbirth and the puerperium; M54.5 Low back pain; O99.513 Diseases of the respiratory system complicating pregnancy, third trimester; J45.909 Unspecified asthma, uncomplicated; Z3A.40 40 weeks gestation of pregnancy; Z88.0 Allergy status to penicillin; Z87.891 Personal history of nicotine dependence
CPT/HCPCS: 36415; 71046; 80053; 81001; 82550; 84484; 85025; 93005; 93010; 99285

== ENCOUNTER 2019-08-05 19:14 | Outpatient (CLI) | payer MEDICAID ==
[2019-08-05 20:12] LABS: APPEARANCE,URINE CLEAR; BILIRUBIN,URINE NEGATIVE (NEGATIVE); COLOR,URINE YELLOW; GLUCOSE, URINE NEGATIVE (NEGATIVE); KETONES,URINE 20 mg/dL (NEGATIVE); LEUKOCYTE ESTERASE,URINE NEGATIVE (NEGATIVE); NITRITE,URINE NEGATIVE (NEGATIVE); PROTEIN,URINE NEGATIVE (NEGATIVE); URINE SPECIFIC GRAVITY 1.006; UROBILINOGEN,URINE NEGATIVE mg/dL (<2.0)
[2019-08-05] MEDS ORDERED: HYDROXYZINE PAMOATE 50 MG CAPSULE PO ONE (21:52)
[2019-08-05] MEDS ORDERED: HYDROXYZINE PAMOATE 50 MG CAPSULE ONE (21:55)
--- NOTE | 2019-08-05 22:07 | Non Stress Test Report ---
Non Stress Test Datetime Report Generated by CPN: 08/05/2019 22:07 DEMOGRAPHIC EGA NST: 39.5 EGA NST: 37.3 INDICATION Indication for Study: Ordered by Provider Indication for Study: Other Indication for Study (NST) Other: back pain. establish well being Indication for Study (NST) Other: LC URINE RESULTS Urine Protein, NST: Negative Urine Ketones - NST: Negative Urine Glucose - NST: Negative Urine Glucose - NST: Negative Urine Blood - NST: Negative MONITORING Monitor Explained: Monitor Explained; Test Explained; Patient Verbalized Understanding Monitor Explained: Monitor Explained; Test Explained; Patient Verbalized Understanding Time on Monitor: 08/04/2019 19:50 Time on Monitor: 07/19/2019 19:28 Time off Monitor: 08/05/2019 20:14 Time off Monitor: 07/19/2019 20:54 NST Duration: 1464 NST Duration: 86 NST INTERVENTIONS NST Interventions: PO Hydration NST Interventions: PO Hydration; Reposition Patient Physician Notified NST: Dr. Ibarra Physician Notified NST: BEBA BABY A: [id number] BABY A Movement : Present Movement : Present Contraction Frequency : 3-4 Contraction Frequency : 1.5-4 FHR Baseline : 150 FHR Baseline : 135 Accelerations : 15X15 Accelerations : 15X15 Decelerations : None Decelerations : None Variability : Moderate 6-25bpm Variability : Moderate 6-25bpm NST Review: Meets Criteria for Reactive NST NST Review: Meets Criteria for Reactive NST NST Review and Verified By : juan luis smith NST Review and Verified By : Li VILLASEÑOR NST Results: Reactive NST Results: Reactive NST REPORT Report Trigger: Send Report
[2019-08-05 22:21] LABS: URINE AMPHETAMINES SCREEN NEGATIVE; URINE BARBITURATES SCREEN NEGATIVE; URINE BENZODIAZEPINES SCREEN NEGATIVE; URINE COCAINE SCREEN NEGATIVE; URINE MARIJUANA (THC) SCREEN NEGATIVE; URINE METHADONE SCREEN NEGATIVE; URINE PHENCYCLIDINE SCREEN NEGATIVE
== END 2019-08-05 22:10 | disposition home or self-care (01) ==
LOC: LC 19:14
PROVIDERS: ATTEND Student in an Organized Health Care Education/Training Program
PROC: 4A1HXCZ Monitoring of Products of Conception, Cardiac Rate, External Approach (ICD-10-PCS; principal; 2019-08-05)
DX: O47.1 False labor at or after 37 completed weeks of gestation (principal); O99.89 Other specified diseases and conditions complicating pregnancy, childbirth and the puerperium; M54.9 Dorsalgia, unspecified; Z3A.39 39 weeks gestation of pregnancy
CPT/HCPCS: 59025; 81005; 80307; J3490

== ENCOUNTER 2019-08-08 16:14 | Inpatient (IN) | payer MEDICAID ==
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
[2019-08-08] MEDS ORDERED: OXYTOCIN/NORMAL SALINE 20 UNIT/1,000 ML RTUINJ ONE (17:13)
[2019-08-08] MEDS ORDERED: OXYTOCIN 10 UNIT/ML VIAL ONE (17:13)
[2019-08-08] MEDS ORDERED: LIDOCAINE 1% INJ-PF (10 MG/ML) 30 ML SDV ONE (17:13)
[2019-08-08] MEDS ORDERED: MISOPROSTOL 0.2 MG TABLET ONE (17:13)
[2019-08-08 17:15] LABS: APPEARANCE,URINE CLEAR; BILIRUBIN,URINE NEGATIVE (NEGATIVE); COLOR,URINE STRAW; GLUCOSE, URINE NEGATIVE (NEGATIVE); KETONES,URINE NEGATIVE (NEGATIVE); LEUKOCYTE ESTERASE,URINE NEGATIVE (NEGATIVE); NITRITE,URINE NEGATIVE (NEGATIVE); PROTEIN,URINE NEGATIVE (NEGATIVE); URINE SPECIFIC GRAVITY 1.005; UROBILINOGEN,URINE NEGATIVE mg/dL (<2.0)
[2019-08-08] MEDS ORDERED: MISOPROSTOL 0.1 MG TABLET ONE (17:37)
[2019-08-08] MEDS ORDERED: VANCOMYCIN HCL INJ 1000 MG VIAL ONE (17:37)
[2019-08-08 17:40] LABS: URINE AMPHETAMINES SCREEN NEGATIVE; URINE BARBITURATES SCREEN NEGATIVE; URINE BENZODIAZEPINES SCREEN NEGATIVE; URINE COCAINE SCREEN NEGATIVE; URINE MARIJUANA (THC) SCREEN NEGATIVE; URINE METHADONE SCREEN NEGATIVE; URINE PHENCYCLIDINE SCREEN NEGATIVE
[2019-08-08 17:50] LABS: ABSOLUTE LYMPHOCYTES (AUTO) 1.7 10^3/uL (0.5-4.7); ABSOLUTE MONOCYTES (AUTO) 0.7 10^3/uL (0.1-1.4); ABSOLUTE NEUT (AUTO) 6.2 10^3/uL (1.7-8.2); BASOPHILS % (AUTO) 0.1 % (0-2); EOSINOPHILS % (AUTO) 0.5 % (0-6); HEMOGLOBIN 12.9 g/dL (12.0-15.5); LYMPHOCYTES % (AUTO) 19.8 % (13-45); MEAN CORPUSCULAR HEMOGLOBIN 29.2 pg (27.0-33.4); MEAN CORPUSCULAR HGB CONC 33.1 g/dL (32.0-36.0); MEAN CORPUSCULAR VOLUME 88 fl (80-97); MONOCYTES % (AUTO) 8.5 % (3-13); PLATELET COUNT 158 10^3/uL (150-450); RED BLOOD COUNT 4.43 10^6/uL (3.72-5.28); RED CELL DISTRIBUTION WIDTH 16.8 % (11.5-14.0); SEGMENTED NEUTROPHILS % (AUTO) 71.1 % (42-78); TOTAL CELLS COUNTED % (AUTO) 100 %; WHITE BLOOD COUNT 8.8 10^3/uL (4.0-10.5)
[2019-08-08] MEDS ORDERED: NALBUPHINE HCL INJ 10 MG/1 ML AMPULE ONE (20:38)
[2019-08-08] MEDS: RINGERS SOLUTION,LACTATED 1,000 ML IV PRN (23:56)
[2019-08-08] MEDS ORDERED: FENTANYL/BUPIVACAINE/NS/PF 300 MCG/150 ML RTUINJ EPI ONE (23:58)
[2019-08-08] MEDS ORDERED: EPHEDRINE SULFATE INJ 50 MG/1 ML AMPULE ONE (23:58)
[2019-08-08] MEDS ORDERED: NALBUPHINE HCL INJ 10 MG/1 ML AMPULE INJ ONE (23:59)
[2019-08-08] MEDS ORDERED: BUPIVACAINE HCL 0.25 % INJ/PF (2.5 MG/1 ML) 30 ML VIAL ONE (23:59)
[2019-08-09] MEDS ORDERED: OXYTOCIN/NORMAL SALINE 0 UNIT/0 ML RTUINJ ONE (02:17)
[2019-08-09] MEDS ORDERED: OXYTOCIN/NORMAL SALINE 20 UNIT/1,000 ML RTUINJ IV PRN (02:21)
[2019-08-09] MEDS: RINGERS SOLUTION,LACTATED 1,000 ML IV PRN ×2 (02:37→10:22)
[2019-08-09] MEDS ORDERED: VANCOMYCIN HCL INJ 1000 MG VIAL ONE (06:17)
[2019-08-09] MEDS: VANCOMYCIN HCL 1,000 MG in DEXTROSE 5%-WATER 250 ML IV SCH ×2 (06:33→07:46)
[2019-08-09] MEDS ORDERED: GENTAMICIN SULFATE INJ 80 MG/2 ML VIAL IV ONE (08:15)
[2019-08-09] MEDS ORDERED: GENTAMICIN SULFATE INJ 80 MG/2 ML VIAL ONE (08:40)
[2019-08-09] MEDS ORDERED: ACETAMINOPHEN 1,000 MG/100 ML RTUPB IV ONE ×2 (09:43→11:26)
[2019-08-09] MEDS ORDERED: ACETAMINOPHEN 1,000 MG/100 ML RTUPB IV PRN (09:44)
[2019-08-09] MEDS ORDERED: LIDOCAINE 2% INJ-PF (20 MG/ML) 10 ML AMPUL ONE ×2 (11:24→11:25)
[2019-08-09] MEDS ORDERED: OXYTOCIN 10 UNIT/ML VIAL ONE (11:25)
[2019-08-09] MEDS ORDERED: KETOROLAC TROMETHAMINE INJ/PF 30 MG/1 ML SDV ONE (11:25)
[2019-08-09] MEDS ORDERED: EPHEDRINE SULFATE INJ 50 MG/1 ML AMPULE ONE (11:26)
[2019-08-09] MEDS ORDERED: OXYTOCIN/NORMAL SALINE 20 UNIT/1,000 ML RTUINJ ONE (11:26)
[2019-08-09] MEDS ORDERED: MIDAZOLAM 2 MG/2 ML INJ ONE (11:26)
[2019-08-09] MEDS ORDERED: ONDANSETRON HCL INJ/PF 4 MG/2 ML SDV ONE (11:26)
[2019-08-09] MEDS ORDERED: FENTANYL CITRATE INJ/PF 100 MCG/2 ML AMPUL ONE (11:26)
[2019-08-09] MEDS ORDERED: CITRIC ACID/SODIUM CITRATE ORAL SOLN 15 ML UDCUP ONE (11:32)
[2019-08-09] MEDS ORDERED: FAMOTIDINE INJ/PF 20 MG/2 ML SDV IV ONE (11:32)
[2019-08-09] MEDS ORDERED: PROMETHAZINE HCL INJ 25 MG/1 ML VIAL IV PRN (12:51)
[2019-08-09] MEDS ORDERED: RINGERS SOLUTION,LACTATED 1,000 ML IV PRN (12:51)
[2019-08-09] MEDS ORDERED: OXYCODONE-ACETAMINOPHEN 5-325 MG TABLET PO PRN (12:51)
[2019-08-09] MEDS ORDERED: ACETAMINOPHEN 100 ML IV PRN (12:51)
[2019-08-09] MEDS ORDERED: DIPH/PERTUSS(ACELL)/TETANUS VAC/PF 0.5 ML SYR (>=10YO) IM PRN (12:51)
[2019-08-09] MEDS ORDERED: ACETAMINOPHEN 325 MG TABLET PO PRN (12:51)
[2019-08-09] MEDS ORDERED: OXYTOCIN/NORMAL SALINE 1,000 ML IV PRN (12:51)
[2019-08-09] MEDS ORDERED: MEASLES,MUMPS&RUBELLA VACC/PF 0.5 ML VIAL SUBCUT PRN (12:51)
--- NOTE | 2019-08-09 12:59 | Operative Report ---
Operative Report DATE OF SURGERY: 08/09/19 PREOPERATIVE DIAGNOSIS: IUP @ 40 3/7, PROM, nonreassuring heart tones, fa ilure to progress POSTOPERATIVE DIAGNOSIS: Same OPERATION: Primary low transverse hysterotomy section SURGEON: MAGDALENO SIMON ANESTHESIA: GA COMPLICATIONS: None QUANTITATIVE BLOOD LOSS: 1,080 INTRAOPERATIVE FINDINGS: Male cephalic presentation Apgars 8 9 PROCEDURE: PROCEDURE IN DETAIL: The patient was taken to the operating room, prepared and draped in a normal sterile fashion in a supine position with a leftward tilt. A transverse skin incision was made with a scalpel and carried through to the underlying layer of fascia with the same scalpel. The fascia was excised in the midline and extended laterally with Diane. The fascia was then dissected from the rectus muscle sharply with Diane and the rectus muscle was divided and the peritoneal cavity was entered sharply with the same Metzenbaum. With good visualization of the bladder and the uterus the bladder blade was inserted. The hysterotomy was nicked with a scalpel and extended laterally with surgeon finger fraction. The infant was then delivered atraumatically. The nose and mouth were suctioned with a suction bulb, the cord was clamped and cut and handed off to awaiting pediatricians. Cord blood was collected. The placenta was removed manually. The uterus was exteriorized and cleared of clots and debris. The hysterotomy was closed with 0 Monocryl in a running, locked fashion. A second layer of the same suture was used to imbricate to ensure hemostasis. The uterus was returned to the abdomen and peritoneal cavity was cleared of clots and debris. The rectus muscle and peritoneum were repaired with mattress stitch of 2-0 Chromic. The fascia was closed with 0-Vicryl. The subcutaneous layer was closed with plain catgut and the skin was closed with 4-0 Vicryl. The patient tolerated the procedure well. Sponge, lap, and needle counts correct x2 and the patient was taken to recovery in stable condition.
--- NOTE | 2019-08-09 13:20 | Delivery Summary ---
Del Sum A-C Datetime Report Generated by CPN: 08/09/2019 13:19 DELIVERY PERSONNEL DELIVERY PERSONNEL: [id number] Delivery Doctor:: Bharti Stanley MD Anesthesiologist:: Marixa Holt MD HIGH RISK OB:: Yuriy Springer CRNA Labor and Delivery Nurse:: Vale Sierra RNophthalmic asst Nurse:: Caroline Weller RN Bakelite Molder:: Vale Sierra RN Assayer:: Dr. Abiodun Fine Nurse:: Angela Fu RN Attendant Coin Operated Laundry/PEDIATRIC CARDIOLOGIST: Nba Saul CST Attendant Coin Operated Laundry/PEDIATRIC CARDIOLOGIST: Talita Garnett, ST MATERNAL INFORMATION Delivery Anesthesia: Epidural Medications After Delivery: Pitocin Drip 20 Units/1000ml NSS Meds After Delivery Comment: pitocin 20 units in 1000mL nss Delivery QBL: 720 Maternal Complications: None LABOR SUMMARY EDC: 08/06/2019 00:00 No. Babies in Womb: 1 Attempted: No Labor Anesthesia: Epidural LABOR INFORMATION Reason for Induction: Not Applicable Onset of Labor: 08/08/2019 10:00 Cervical Ripening Agents: Cytotec @ 50 mcg PO and 25 mcg PV Oxytocin: Augmentation Group B Beta Strep: positive Antibiotics # of Doses: 2 Antibiotics Time of Last Dose: 632 Name of Antibiotic Given: Vanc Steroids Given: None Reason Steroids Not Administered: Not Applicable MEMBRANES Membranes Rupture Method: Spontaneous Rupture of Membranes: 08/08/2019 10:00 Length of Rupture (hr): 26.05 Amniotic Fluid Color: Clear Amniotic Fluid Amount: Moderate Amniotic Fluid Odor: Normal STAGES OF LABOR Stage 3 hr: 0 Stage 3 min: 2 Total Time in Labor hr: 26 Total Time in Labor min: 5 VAGINAL DELIVERY Episiotomy: None Laceration #1: None Laceration Extension #1: N/A Laceration Repair: Not Applicable Sponge Count Correct: N/A Sharps Count Correct: N/A CSECTION DELIVERY Primary Indication: Nonreassuring Status Secondary Indication: Secondary Arrest of Dilatation CSection Urgency: Non-Scheduled CSection Incidence: Primary Labor: Labor Elective: Nonelective CSection Incision: Lower Uterine Transverse BABY A INFORMATION Delivery Date/Time: 08/09/2019 12:03 Method of Delivery: Born in Route : No : N/A Forceps: N/A Vacuum Extraction: N/A Shoulder Dystocia : No PRESENTATION/POSITION BABY A Presentation: Cephalic Cephalic Presentation: Vertex Breech Presentation: N/A PLACENTA INFORMATION BABY A Placenta Delivery Time : 08/09/2019 12:05 Placenta Method of Delivery: Manual Removal Placenta Status: Delivered SCORES BABY A Heart Rate 1 min: >100 bpm Resp Effort 1 min: Good Cry Reflex Irritability 1 min: Cough or Sneeze or Pulls Away Muscle Tone 1 min: Active Motion Color 1 min: Body [place], Extremities Blue Resuscitation Effort 1 min: Tactile Stimulation SCORE 1 MIN: 9 Heart Rate 5 min: >100 bpm Resp Effort 5 min: Good Cry Reflex Irritability 5 min: Cough or Sneeze or Pulls Away Muscle Tone 5 min: Active Motion Color 5 min: Body [place], Extremities Blue Resuscitation Effort 5 min: Tactile Stimulation SCORE 5 MIN: 9 INFANT INFORMATION BABY A Gestational Age at Delivery: 40.3 Gestational Status: Full Term- 39- 40.6 Weeks Infant Outcome : Liveborn Condition : Stable Sex: Male IDENTIFICATION BABY A Infant Verification Date/Time: 08/09/2019 12:05 ID Band Number: [id number] Mother's Name Verified: Yes Infant RN Verifying Infant: , RN and B.Baidy, RN WEIGHT/LENGTH BABY A Infant Birthweight (gm): 3745 Weight (lb): 8 Infant Weight (oz): 4 Length (in): 21.50 Infant Length (cm): 54.61 CORD INFORMATION BABY A No. Cord Vessels: 3 Nuchal Cord : N/A Cord Blood Taken: Yes-For Eval (Mom's Blood Type - or O+) Infant Suction: None ASSESSMENT BABY A Complications: None Physical Findings at Delivery: Within Normal Limits Respirations: Appears Normal Skin to Skin: No Care By: Johnnie, CHARLEEN Transferred To: Nursery BABY B INFORMATION : N/A SIGNATURES : I was personally available for consultation and serving as supervising physician for the MLP.
[2019-08-09] MEDS ORDERED: MORPHINE SULFATE 10 MG/ML INJ ONE (13:26)
[2019-08-09] MEDS: VANCOMYCIN HCL INJ 1000 MG VIAL IV SCH ×2 (13:37→18:03)
[2019-08-09] MEDS ORDERED: GENTAMICIN SULFATE INJ 80 MG/2 ML VIAL IM SCH (14:00)
[2019-08-09] MEDS ORDERED: OXYCODONE-ACETAMINOPHEN 5-325 MG TABLET ONE (14:13)
[2019-08-09] MEDS: OXYCODONE-ACETAMINOPHEN 5-325 MG TABLET PO PRN ×2 (14:15→20:35)
[2019-08-09] MEDS: IBUPROFEN 800 MG TABLET PO SCH (17:44)
[2019-08-09] MEDS: KETOROLAC TROMETHAMINE INJ/PF 30 MG/1 ML SDV IV SCH (17:45)
[2019-08-09] MEDS: GENTAMICIN SULFATE INJ 80 MG/2 ML VIAL IV SCH (17:45)
[2019-08-09] MEDS: DOCUSATE SODIUM 100 MG CAPSULE PO SCH (18:03)
[2019-08-09] MEDS: MORPHINE SULFATE 10 MG/ML INJ IV PRN (18:03)
[2019-08-09] MEDS: SIMETHICONE 80 MG TAB.CHEW PO PRN (20:36)
[2019-08-10] MEDS: GENTAMICIN SULFATE INJ 80 MG/2 ML VIAL IV SCH (00:51)
[2019-08-10] MEDS: RINGERS SOLUTION,LACTATED 1,000 ML IV PRN (00:51)
[2019-08-10] MEDS: MORPHINE SULFATE 10 MG/ML INJ IV PRN (00:52)
[2019-08-10] MEDS: KETOROLAC TROMETHAMINE INJ/PF 30 MG/1 ML SDV IV SCH ×2 (00:53→06:29)
[2019-08-10] MEDS: IBUPROFEN 800 MG TABLET PO SCH ×5 (00:56→23:37)
[2019-08-10] MEDS ORDERED: GENTAMICIN SULFATE 120 MG in DEXTROSE 5%-WATER 100 ML IV ONE (01:00)
[2019-08-10] MEDS ORDERED: GENTAMICIN SULFATE 160 MG in DEXTROSE 5%-WATER 100 ML IV ONE (01:00)
[2019-08-10] MEDS ORDERED: GENTAMICIN SULFATE INJ 80 MG/2 ML VIAL IV PRN (01:00)
[2019-08-10 06:25] LABS: HEMATOCRIT 35.4 % (36.0-47.0); HEMOGLOBIN 11.8 g/dL (12.0-15.5); MEAN CORPUSCULAR HEMOGLOBIN 29.3 pg (27.0-33.4); MEAN CORPUSCULAR HGB CONC 33.5 g/dL (32.0-36.0); MEAN CORPUSCULAR VOLUME 88 fl (80-97); PLATELET COUNT 129 10^3/uL (150-450); RED BLOOD COUNT 4.04 10^6/uL (3.72-5.28); RED CELL DISTRIBUTION WIDTH 16.7 % (11.5-14.0); WHITE BLOOD COUNT 12.9 10^3/uL (4.0-10.5)
[2019-08-10] MEDS: VANCOMYCIN HCL INJ 1000 MG VIAL IV SCH (06:29)
[2019-08-10] MEDS: OXYCODONE-ACETAMINOPHEN 5-325 MG TABLET PO PRN ×4 (07:16→21:39)
[2019-08-10] MEDS ORDERED: GENTAMICIN SULFATE 120 MG in DEXTROSE 5%-WATER 100 ML IV SCH (10:00)
--- NOTE | 2019-08-10 10:09 | PDOC PROGRESS REPORT ---
Subjective-OB Progress Note for:: 08/10/19 Subjective: Pt doing well, ambulatory, reports regular diet and passing flatus. Bleeding is stable, pain is well controlled. Physical Exam (OB) Vital Signs: Temp Pulse Resp BP Pulse Ox 97.7 F 71 18 95/61 L 100 08/10/19 07:21 08/10/19 07:21 08/10/19 07:21 08/10/19 07:21 08/10/19 07:21 Intake & Output 08/09/19 08/10/19 08/11/19 06:59 06:59 06:59 Intake Total 335 2669 Output Total 4400 Balance 335 -1731 Weight 109.3 kg - Dressing Removed: Yes Incision: Dressing - Lochia Lochia Amount: Small 10-25 ml Lochia Color: Rubra/Red - Abdomen Description: Soft Hernia Present: No Fundal Description: Firm, Midline Fundal Height: u/u - u/2 Objective-Diagnostic Laboratory: 08/10/19 06:10 08/10/19 06:10 WBC 12.9 H RBC 4.04 Hgb 11.8 L Hct 35.4 L MCV 88 MCH 29.3 MCHC 33.5 RDW 16.7 H Plt Count 129 L Assessment and Plan(PN) - Assessment and Plan (1) Prolonged rupture of membranes, greater than 24 hours, delivered Is this a current diagnosis for this admission?: Yes (2) S/P primary low transverse Is this a current diagnosis for this admission?: Yes (3) Spontaneous rupture of membranes Is this a current diagnosis for this admission?: Yes - Time Spent with Patient Time with patient: Less than 15 minutes Medications reviewed and adjusted accordingly: Yes - Disposition Anticipated Discharge: Home Within: within 24 hours
[2019-08-10] MEDS: DOCUSATE SODIUM 100 MG CAPSULE PO SCH ×2 (10:50→17:08)
[2019-08-10] MEDS: PRENATAL VITAMIN W DHA CAPSULE PO SCH (10:50)
[2019-08-10] MEDS: GENTAMICIN SULFATE 160 MG in DEXTROSE 5%-WATER 100 ML IV SCH ×2 (10:50→17:07)
[2019-08-10] MEDS ORDERED: VANCOMYCIN HCL 1,000 MG in DEXTROSE 5%-WATER 250 ML IV ONE (18:00)
[2019-08-10] MEDS: SIMETHICONE 80 MG TAB.CHEW PO PRN (23:38)
[2019-08-11] MEDS: OXYCODONE-ACETAMINOPHEN 5-325 MG TABLET PO PRN ×4 (01:49→22:23)
[2019-08-11] MEDS: IBUPROFEN 800 MG TABLET PO SCH ×3 (05:18→18:20)
--- NOTE | 2019-08-11 09:24 | PDOC PROGRESS REPORT ---
Subjective-OB Progress Note for:: 08/11/19 Subjective: Doing well, but feels like she needs to stay another day, pain in incision when walking espically moving the right leg, has SCD's on, eating well, , voiding Physical Exam (OB) Vital Signs: Temp Pulse Resp BP Pulse Ox 97.6 F 84 12 117/65 97 08/11/19 08:26 08/11/19 08:26 08/11/19 08:26 08/11/19 08:26 08/11/19 08:26 Intake & Output 08/10/19 08/11/19 08/12/19 06:59 06:59 06:59 Intake Total 2669 1104 360 Output Total 4400 Balance -1731 1104 360 - PIH/Pre-Eclampsia DTR's: 1 + Clonus: Negative Headache: Absent Epigastric Pain: No Visual Changes: No - Dressing Removed: No Incision: Open Closure Type: Surgical Glue - Lochia Lochia Amount: Scant < 10 ml Lochia Color: Rubra/Red - Abdomen Description: Soft, Round Hernia Present: No Fundal Description: Firm, Midline Fundal Height: u/u - u/2 Objective-Diagnostic Laboratory: 08/10/19 06:10 Assessment and Plan(PN) - Assessment and Plan (1) S/P primary low transverse Is this a current diagnosis for this admission?: Yes (2) Prolonged rupture of membranes, greater than 24 hours, delivered Is this a current diagnosis for this admission?: Yes (3) Spontaneous rupture of membranes Is this a current diagnosis for this admission?: Yes - Time Spent with Patient Time with patient: Less than 15 minutes Medications reviewed and adjusted accordingly: Yes - Disposition Anticipated Discharge: Home Within: within 24 hours
[2019-08-11] MEDS: DOCUSATE SODIUM 100 MG CAPSULE PO SCH ×2 (10:21→18:20)
[2019-08-11] MEDS: PRENATAL VITAMIN W DHA CAPSULE PO SCH (10:21)
[2019-08-11 23:05] LABS: HEMATOCRIT 36.6 % (36.0-47.0); HEMOGLOBIN 12.2 g/dL (12.0-15.5); MEAN CORPUSCULAR HEMOGLOBIN 29.4 pg (27.0-33.4); MEAN CORPUSCULAR HGB CONC 33.2 g/dL (32.0-36.0); MEAN CORPUSCULAR VOLUME 89 fl (80-97); PLATELET COUNT 141 10^3/uL (150-450); RED BLOOD COUNT 4.13 10^6/uL (3.72-5.28); RED CELL DISTRIBUTION WIDTH 16.8 % (11.5-14.0); WHITE BLOOD COUNT 12.1 10^3/uL (4.0-10.5)
[2019-08-12] MEDS: IBUPROFEN 800 MG TABLET PO SCH ×3 (00:37→13:26)
[2019-08-12] MEDS: OXYCODONE-ACETAMINOPHEN 5-325 MG TABLET PO PRN ×3 (03:22→13:36)
[2019-08-12] MEDS: DOCUSATE SODIUM 100 MG CAPSULE PO SCH (09:05)
[2019-08-12] MEDS: PRENATAL VITAMIN W DHA CAPSULE PO SCH (09:05)
--- NOTE | 2019-08-12 12:53 | PDOC DISCHARGE SUMMARY ---
Final Diagnosis Discharge Date: 08/12/19 - Final Diagnosis (1) Asthma Is this a current diagnosis for this admission?: Yes (2) Prolonged rupture of membranes, greater than 24 hours, delivered Is this a current diagnosis for this admission?: Yes (3) S/P primary low transverse Is this a current diagnosis for this admission?: Yes (4) Spontaneous rupture of membranes Is this a current diagnosis for this admission?: Yes Discharge Data - Discharge Medication Prescriptions: Docusate Sodium [Colace 100 mg Capsule] 100 mg PO TID #60 capsule Ibuprofen [Motrin 800 mg Tablet] 800 mg PO Q8HP PRN #90 tablet PRN Reason: Oxycodone HCl/Acetaminophen [Percocet 5-325 mg Tablet] 1 tab PO Q4HP PRN #30 tablet PRN Reason: Albuterol Sulfate [Proair Hfa Inhalation Aerosol 8.5 gm Mdi] 1 puff IH Q4 PRN #1 mdi PRN Reason: Home Medications: No122/Iron/Folic Acid [ Multi Tablet] 1 tab PO DAILY 08/08/19 Albuterol Sulfate [Proair Hfa Inhalation Aerosol 8.5 gm Mdi] 1 puff IH Q4 PRN #1 mdi 08/12/19 Docusate Sodium [Colace 100 mg Capsule] 100 mg PO TID #60 capsule 08/12/19 Ibuprofen [Motrin 800 mg Tablet] 800 mg PO Q8HP PRN #90 tablet 08/12/19 Oxycodone HCl/Acetaminophen [Percocet 5-325 mg Tablet] 1 tab PO Q4HP PRN #30 tablet 08/12/19 Procedures: NST Intrapartum Procedure(s): : Low Cervical, Transverse - Diagnosis Test Laboratory: Temp Pulse Resp BP Pulse Ox 98.0 F 87 18 125/64 100 08/12/19 11:56 08/12/19 11:56 08/12/19 11:56 08/12/19 11:56 08/12/19 11:56 08/08/19 08/08/19 08/10/19 16:26 17:33 06:10 RBC 4.43 4.04 Hgb 12.9 11.8 L Hct 39.0 35.4 L Urine Opiates Screen NEGATIVE 08/11/19 22:31 RBC 4.13 Hgb 12.2 Hct 36.6 Urine Opiates Screen - Discharge information/Instructions Discharge Activity: Balance Activity w/Rest, Pelvic Rest, No tub bath Discharge Diet: Regular Disposition: HOME, SELF-CARE Follow up with: [facility] in: 1, Weeks
[2019-08-12 14:06] VITALS: BP 129/63
== END 2019-08-12 16:20 | disposition home or self-care (01) | DRG 788 ==
LOC: LC 16:14 → LR 16:58 → EEVIPCON 16:58 → 2N 08-09 14:55
PROVIDERS: ADMIT Student in an Organized Health Care Education/Training Program; ATTEND Obstetrics & Gynecology
PROC: 10D00Z1 Extraction of Products of Conception, Low, Open Approach (ICD-10-PCS; principal; 2019-08-09)
PROC: 3E0234Z Introduction of Serum, Toxoid and Vaccine into Muscle, Percutaneous Approach (ICD-10-PCS; 2019-08-12)
DX: O76 Abnormality in fetal heart rate and rhythm complicating labor and delivery (principal); O62.1 Secondary uterine inertia; O99.824 Streptococcus B carrier state complicating childbirth; O99.52 Diseases of the respiratory system complicating childbirth; O42.12 Full-term premature rupture of membranes, onset of labor more than 24 hours following rupture; J45.909 Unspecified asthma, uncomplicated; O99.02 Anemia complicating childbirth; D64.9 Anemia, unspecified; Z37.0 Single live birth; Z88.0 Allergy status to penicillin; Z87.891 Personal history of nicotine dependence; Z3A.40 40 weeks gestation of pregnancy; Z91.410 Personal history of adult physical and sexual abuse; Z79.51 Long term (current) use of inhaled steroids; Z23 Encounter for immunization
CPT/HCPCS: 1961; 36415; 80307; 81005; 85025; 85027; 86592; 86850; 86900; 86901; 90715; 94760; 94799; C1726; J0131; J1580; J1885; J2250; J2270; J2300; J2405; J2590; J3010; J3370; J3490; J7060; J7120; S0028

== ENCOUNTER 2019-09-13 22:33 | Emergency (ER) | payer MEDICAID ==
[2019-09-13 22:41] VITALS: BP 120/86
--- NOTE | 2019-09-13 23:35 | ER Document Report ---
ED General - General Chief Complaint: Vaginal Pain Stated Complaint: VAGINAL SWELLING Time Seen by Provider: 09/13/19 23:24 Primary Care Provider: EARL PETERSON MD [ACTIVE STAFF] - Follow up as needed TRAVEL OUTSIDE OF THE [place] IN LAST 30 DAYS: No - HPI Notes: 36-year-old female approximately 1 month presents with vaginal pain and swelling. Patient had a cervical section performed a month ago due to arrest of dilation. No other complications. Her last couple days she noticed some pain and swelling in her external vaginal area. She had a small amount of bloody discharge. No fever, chills or sweats. No prior history of abscess. Scheduled to see her OB GEN of the next 36 hours. Moderate intensity, gradual onset, nonradiating. No other modifying factors, no other associated symptoms, no other provocative or palliative factors. - Related Data Allergies/Adverse Reactions: amoxicillin trihydrate [From Augmentin] Allergy (Verified 08/08/19 16:28) Potassium Clavulanate * [From Augmentin] Allergy (Verified 08/08/19 16:28) Home Medications: . Ibuprofen Past Medical History - Social History Smoking Status: Former Smoker Chew tobacco use (# tins/day): No Frequency of alcohol use: None Drug Abuse: None Family History: Reviewed & Not Pertinent, Other - ASTHMA Patient has suicidal ideation: No Patient has homicidal ideation: No - Medical History Notes: x1 month Pulmonary Medical History: Reports: Hx Asthma Neurological Medical History: Reports: Hx Migraine Renal/ Medical History: Reports: Hx Ovarian Cysts. Denies: Hx Peritoneal Dialysis Psychiatric Medical History: Reports: Hx Depression Past Surgical History: Reports: Hx Adenoidectomy, Hx Orthopedic Surgery - Left shoulder x3, Hx Tonsillectomy - Immunizations Immunizations up to date: Yes Hx Diphtheria, Pertussis, Tetanus Vaccination: No Review of Systems - Review of Systems Notes: Review of systems as in the history of present illness, otherwise negative x 10 systems. Physical Exam - Vital signs Vitals: Temp Pulse Resp BP Pulse Ox 98.0 F 94 18 120/86 H 100 09/13/19 22:39 09/13/19 22:39 09/13/19 22:39 09/13/19 22:39 09/13/19 22:39 Course - Re-evaluation Re-evalutation: 09/14/19 00:01 External vaginal examination is performed. There is an approximately 0.5 x 0.7 cm area of irregular tissue that is thickened and mildly erythematous about the superior aspect of the labia minora. This is exactly where the patient has her discomfort and the swelling she is speaking of. Remainder of pelvic vaginal exam is unremarkable. Etiology of the after mentioned tissue is unclear, may be hypertrophy due to irritation. Patient is going to be seeing her [facility] doctor in follow-up, will cover her with antibiotics ASIS represents irritation with secondary cellulitis infectious component. 09/14/19 00:05 - Vital Signs Vital signs: Temp Pulse Resp BP Pulse Ox 98.0 F 94 18 120/86 H 100 09/13/19 22:39 09/13/19 22:39 09/13/19 22:39 09/13/19 22:39 09/13/19 22:39 Discharge - Discharge Clinical Impression: Mass Condition: Stable Disposition: HOME, SELF-CARE Instructions: Growth or Mass, Pending Workup ([facility]) Additional Instructions: See your [facility] doctor tomorrow. Prescriptions: Cephalexin Monohydrate [Keflex 500 mg Capsule] 500 mg PO Q6H 7 Days #28 capsule Referrals: EARL PETERSON MD [ACTIVE STAFF] - Follow up as needed
== END 2019-09-14 00:30 | disposition home or self-care (01) ==
LOC: ER 22:33
DX: N76.89 Other specified inflammation of vagina and vulva (principal); R10.2 Pelvic and perineal pain; Z87.891 Personal history of nicotine dependence; J45.909 Unspecified asthma, uncomplicated
CPT/HCPCS: 99283

== ENCOUNTER 2019-11-02 14:40 | Emergency (ER) | payer MEDICAID ==
--- NOTE | 2019-11-02 15:01 | ER Document Report ---
ED Medical Screen (RME) - General Chief Complaint: Abdominal Pain Stated Complaint: ABDOMINAL PAIN,VOMITING,HEADACHE Time Seen by Provider: 11/02/19 14:50 Mode of Arrival: Ambulatory Information source: Patient Notes: 23-year-old female presents emergency department with lower abdominal pain low back pain nausea vomiting and diarrhea a couple days ago. Also reports her chest felt tight. Denies fever. Reports history of asthma. Respiratory rate even unlabored. Denies pain with void. I have greeted and performed a rapid initial assessment of this patient. A comprehensive ED assessment and evaluation of the patient, analysis of test results and completion of the medical decision making process will be conducted by additional ED providers. Dictation of this chart was performed using voice recognition software; therefore, there may be some unintended grammatical errors. TRAVEL OUTSIDE OF THE [place] IN LAST 30 DAYS: No - Related Data Allergies/Adverse Reactions: amoxicillin trihydrate [From Augmentin] Allergy (Verified 11/02/19 14:55) Potassium Clavulanate * [From Augmentin] Allergy (Verified 11/02/19 14:55) Past Medical History Pulmonary Medical History: Reports: Hx Asthma Neurological Medical History: Reports: Hx Migraine Renal/ Medical History: Reports: Hx Ovarian Cysts. Denies: Hx Peritoneal Dialysis Psychiatric Medical History: Reports: Hx Depression Past Surgical History: Reports: Hx Adenoidectomy, Hx Orthopedic Surgery - Left shoulder x3, Hx Tonsillectomy - Immunizations Immunizations up to date: Yes Hx Diphtheria, Pertussis, Tetanus Vaccination: No
--- NOTE | 2019-11-02 15:45 | EKG REPORT ---
SEVERITY:- NORMAL ECG - SINUS RHYTHM : Confirmed by: Kemal Aguilera MD 02-Nov-2019 15:44:34
[2019-11-02 16:05] LABS: ABSOLUTE EOSINOPHILS # (AUTO) 0.1 10^3/uL (0.0-0.6); ABSOLUTE LYMPHOCYTES (AUTO) 2.4 10^3/uL (0.5-4.7); ABSOLUTE MONOCYTES (AUTO) 0.5 10^3/uL (0.1-1.4); ABSOLUTE NEUT (AUTO) 4.4 10^3/uL (1.7-8.2); BASOPHILS % (AUTO) 0.3 % (0-2); EOSINOPHILS % (AUTO) 0.8 % (0-6); HEMATOCRIT 44.2 % (36.0-47.0); HEMOGLOBIN 14.7 g/dL (12.0-15.5); LYMPHOCYTES % (AUTO) 32.9 % (13-45); MEAN CORPUSCULAR HGB CONC 33.2 g/dL (32.0-36.0); MEAN CORPUSCULAR VOLUME 87 fl (80-97); MONOCYTES % (AUTO) 6.5 % (3-13); PLATELET COUNT 262 10^3/uL (150-450); RED BLOOD COUNT 5.06 10^6/uL (3.72-5.28); RED CELL DISTRIBUTION WIDTH 14.8 % (11.5-14.0); SEGMENTED NEUTROPHILS % (AUTO) 59.5 % (42-78); TOTAL CELLS COUNTED % (AUTO) 100 %; WHITE BLOOD COUNT 7.3 10^3/uL (4.0-10.5)
[2019-11-02 16:12] LABS: APPEARANCE,URINE SLIGHTLY-CLOUDY; BILIRUBIN,URINE NEGATIVE (NEGATIVE); COLOR,URINE YELLOW; GLUCOSE, URINE NEGATIVE (NEGATIVE); KETONES,URINE NEGATIVE (NEGATIVE); LEUKOCYTE ESTERASE,URINE NEGATIVE (NEGATIVE); NITRITE,URINE NEGATIVE (NEGATIVE); PROTEIN,URINE NEGATIVE (NEGATIVE); URINE SPECIFIC GRAVITY 1.017; UROBILINOGEN,URINE NEGATIVE mg/dL (<2.0)
[2019-11-02 16:27] LABS: ALBUMIN 4.3 g/dL (3.5-5.0); ALKALINE PHOSPHATASE 105 U/L (38-126); ANION GAP 9 (5-19); ASPARTATE AMINO TRANSFERASE 22 U/L (14-36); BILIRUBIN,DIRECT 0.1 mg/dL (0.0-0.4); BILIRUBIN,TOTAL 0.3 mg/dL (0.2-1.3); BLOOD UREA NITROGEN 10 mg/dL (7-20); CALCIUM 9.8 mg/dL (8.4-10.2); CARBON DIOXIDE 27 mmol/L (22-30); CHLORIDE 102 mmol/L (98-107); GLUCOSE 74 mg/dL (75-110); POTASSIUM 4.2 mmol/L (3.6-5.0); TOTAL PROTEIN 8.1 g/dL (6.3-8.2)
--- NOTE | 2019-11-02 16:47 | RADIOLOGY REPORT (SQ) ---
EXAM DESCRIPTION: CHEST 2 VIEWS COMPLETED DATE/TIME: 11/02/2019 4:25 pm REASON FOR STUDY: cp COMPARISON: 08/05/2019 TECHNIQUE: Frontal and lateral radiographic views of the chest acquired. NUMBER OF VIEWS: Two view. LIMITATIONS: None. FINDINGS: LUNGS AND PLEURA: No pneumothorax. No consolidation or pleural effusion. MEDIASTINUM AND HILAR STRUCTURES: Stable. HEART AND VASCULAR STRUCTURES: Stable. BONES: No acute findings. HARDWARE: None in the chest. OTHER: No other significant finding. IMPRESSION: NO ACUTE FINDINGS. TECHNICAL DOCUMENTATION: JOB ID: [id number] [place]-72 2010 [employer]- All Rights Reserved Reading location - IP/workstation name: [email or web address]
[2019-11-02] MEDS ORDERED: NORMAL SALINE 1000 ML 1,000 ML IV ONE (20:42)
[2019-11-02] MEDS ORDERED: MORPHINE SULFATE 10 MG/ML INJ IV ONE (20:42)
--- NOTE | 2019-11-02 21:25 | ER Document Report ---
ED General - General Chief Complaint: Abdominal Pain Stated Complaint: ABDOMINAL PAIN,VOMITING,HEADACHE Time Seen by Provider: 11/02/19 14:50 Primary Care Provider: EARL PETERSON MD [Primary Care Provider] - Follow up in 3-5 days Mode of Arrival: Ambulatory Notes: 23-year-old female presents with abdominal pain, nausea/vomiting, low back pain that is been ongoing for 1 week. Patient denies any urinary symptoms. Patient states she had one episode of diarrhea after eating Nepali food and drinking eggnog day before yesterday. Patient was also complaining of some coughing and chest tightness. Patient denies any fever, chills, shortness of breath. TRAVEL OUTSIDE OF THE [place] IN LAST 30 DAYS: No - Related Data Allergies/Adverse Reactions: amoxicillin trihydrate [From Augmentin] Allergy (Verified 11/02/19 14:55) Potassium Clavulanate * [From Augmentin] Allergy (Verified 11/02/19 14:55) Past Medical History - General Information source: Patient - Social History Smoking Status: Former Smoker Chew tobacco use (# tins/day): No Frequency of alcohol use: Social Drug Abuse: None Family History: Reviewed & Not Pertinent, Other - ASTHMA Patient has suicidal ideation: No Patient has homicidal ideation: No Pulmonary Medical History: Reports: Hx Asthma Neurological Medical History: Reports: Hx Migraine Renal/ Medical History: Reports: Hx Ovarian Cysts. Denies: Hx Peritoneal D ialysis Psychiatric Medical History: Reports: Hx Depression Past Surgical History: Reports: Hx Adenoidectomy, Hx Orthopedic Surgery - Left shoulder x3, Hx Tonsillectomy - Immunizations Immunizations up to date: Yes Hx Diphtheria, Pertussis, Tetanus Vaccination: No Review of Systems - Review of Systems Notes: Constitutional: Negative for fever. HENT: Negative for sore throat. Eyes: Negative for visual changes. Cardiovascular: Positive for chest tightness. And coughing Respiratory: Negative for shortness of breath. Gastrointestinal: Positive for abdominal pain, vomiting or diarrhea. Genitourinary: Negative for dysuria. Musculoskeletal: Negative for back pain. Skin: Negative for rash. Neurological: Negative for headaches, weakness or numbness. 10 point ROS negative except as marked above and in HPI. Physical Exam - Vital signs Vitals: Temp Pulse BP Pulse Ox 97.3 F 93 122/78 96 11/02/19 14:53 11/02/19 14:53 11/02/19 14:53 11/02/19 14:53 - Notes Notes: GENERAL: Well-appearing, well-nourished and in no acute distress. HEAD: Atraumatic, normocephalic. EYES: Extraocular movements intact, sclera anicteric, conjunctiva are normal. NECK: Normal range of motion, supple without lymphadenopathy or JVD. LUNGS: Breath sounds clear to auscultation bilaterally and equal. No wheezes rales or rhonchi. HEART: Regular rate and rhythm without murmurs, rubs or gallops. ABDOMEN: Soft, tenderness to periumbilical area with mild guarding. No rebound. No masses appreciated. No CVA tenderness. EXTREMITIES: Normal range of motion, no pitting or edema. No clubbing or cyanosis. Mild spinal tenderness to L-spine. NEUROLOGICAL: Cranial nerves II through XII grossly intact. Normal speech, normal gait. PSYCH: Normal mood, normal affect. SKIN: Warm, Dry, normal turgor, no rashes or lesions noted. Course - Re-evaluation Re-evalutation: 11/02/19 nontoxic, well-appearing female. Abdomen exam with tenderness periumb ilically with mild guarding. Lungs are clear bilaterally. Regular rate and rhythm. No CVA tenderness. Mild spinal tenderness to lumbar area. EKG shows no ST elevations with no tachycardia. Chest x-ray is negative. All lab work is reassuring. And UA is negative. No leukocytosis. Patient is afebrile. However given abdominal exam will order CT abdomen/pelvis with IV contrast. 11/02/19 22:43 CT abd/pelvis neg along with no bony abnormalitites. Pt is continuing to complain of pain. Toradol ordered and will reassess. 11/02/19 Pt's symptoms improved however still having some mild abd discomfort. PO tolerant. Bentyl given IM with prescription for bentyl and zofran. Strict return precautions given. Pt given copy of CT abdomen/pelvis. Pt voices understanding and agrees with plan of care. - Vital Signs Vital signs: Temp Pulse Resp BP Pulse Ox 97.4 F 64 16 102/55 L 98 11/03/19 01:26 11/03/19 01:26 11/03/19 01:26 11/03/19 01:26 11/03/19 01:26 - Laboratory Result Diagrams: 11/02/19 15:35 11/02/19 15:35 Laboratory results interpreted by me: 11/02/19 11/02/19 15:35 15:35 RDW 14.8 H Glucose 74 L Discharge - Discharge Clinical Impression: Nausea vomiting and diarrhea Abdominal pain Qualifiers: Abdominal location: generalized Qualified Code(s): R10.84 - Generalized abdominal pain Condition: Stable Disposition: HOME, SELF-CARE Instructions: Abdominal Pain ([facility]), Toradol Injection ([facility]), Vomiting ([facility]) Additional Instructions: Your work-up was reassuring today. Your CT abdomen/pelvis was normal. Please take medications as prescribed. Please follow-up with primary care doctor in 3 to 5 days. Return to ER for any worsening symptoms, including fever, worsening abdominal pain, vomiting not controlled by medication, urinary symptoms, diarrhea/constipation, or any other symptoms that are concerning to you. Prescriptions: Ondansetron [Zofran Odt 4 mg Tablet] 1 - 2 tab PO Q4HP PRN #10 tab.rapdis PRN Reason: Dicyclomine HCl [Bentyl 20 mg Tablet] 20 mg PO QID #40 tablet Forms: Return to Work Referrals: EARL PETERSON MD [Primary Care Provider] - Follow up in 3-5 days
--- NOTE | 2019-11-02 22:01 | RADIOLOGY REPORT (SQ) ---
EXAM DESCRIPTION: CT ABDOMEN PELVIS WITH IV CONTRAST COMPLETED DATE/TME: 11/02/2019 20:41 CLINICAL HISTORY: 23 years, Female, mid abdominal pain, n/v/d COMPARISON: Prior CT dated 03/11/2016 TECHNIQUE: Contrast enhanced CT of the abdomen/pelvis was performed. Images were obtained after the uneventful administration of 100 mL of Omnipaque 350 intravenous contrast. Images stored on PACS. All CT scanners at this facility use dose modulation, iterative reconstruction, and/or weight based dosing when appropriate to reduce radiation dose to as low as reasonably achievable (ALARA). [facility]: Dose Right [facility]: CareDose [facility]: Dose Right [facility]: Teradose 4D [facility]: [employer] LIMITATIONS: None. FINDINGS: Limited evaluation of the lower chest reveals clear lung bases. A subcentimeter low-density lesion is noted about the left hepatic lobe, too small to accurately characterize though new from the previous exam dated 03/11/2016. Regardless, this is still most likely a benign lesion such as a tiny cyst. Remainder of the liver parenchyma enhances normally. Spleen, pancreas, gallbladder, and both adrenal glands appear normal. Both kidneys enhance symmetrically. There is no hydronephrosis or hydroureter. The urinary bladder is well distended and shows no suspicious finding. Uterus shows no suspicious abnormality. Small and large bowel appear normal in caliber. No evidence of bowel obstruction. Appendix is normal. Vascular structures opacify with contrast normally. No suspicious lymphadenopathy or drainable fluid collections are appreciated. Bone windows show no destructive osseous lesions. IMPRESSION: No acute abnormality within the abdomen or pelvis. TECHNICAL DOCUMENTATION: Quality ID # [id number]: Final reports with documentation of one or more dose reduction techniques (e.g., Automated exposure control, adjustment of the mA and/or kV according to patient size, use of iterative reconstruction technique) copyright 2010 [employer]- All Rights Reserved
[2019-11-02] MEDS ORDERED: KETOROLAC TROMETHAMINE INJ/PF 30 MG/1 ML SDV IV ONE (22:43)
[2019-11-03] MEDS ORDERED: DICYCLOMINE HCL INJ 20 MG/2 ML AMPULE IM ONE (01:11)
[2019-11-03 01:27] VITALS: BP 102/55
== END 2019-11-03 01:30 | disposition home or self-care (01) ==
LOC: ER 14:40
DX: R10.84 Generalized abdominal pain (principal); R11.2 Nausea with vomiting, unspecified; R19.7 Diarrhea, unspecified; M54.5 Low back pain; R05 Cough; R07.9 Chest pain, unspecified; Z87.891 Personal history of nicotine dependence; J45.909 Unspecified asthma, uncomplicated
CPT/HCPCS: 93005; 36415; 83690; 85025; 81025; 80053; 81001; 71046; 74177; 93010; J0500; J1885; J2270; J7030; 96361; 96372; 96374; 96375; 99284

== ENCOUNTER 2019-11-12 04:44 | Emergency (ER) | payer MEDICAID ==
[2019-11-12] MEDS ORDERED: DIPHENHYDRAMINE HCL 50 MG/ML VIAL IV ONE (08:52)
[2019-11-12] MEDS ORDERED: KETOROLAC TROMETHAMINE INJ/PF 30 MG/1 ML SDV IV ONE (08:52)
[2019-11-12] MEDS ORDERED: NORMAL SALINE 1000 ML 1,000 ML IV ONE (08:52)
[2019-11-12] MEDS ORDERED: PROCHLORPERAZINE EDISYLATE INJ 10 MG/2 ML VIAL IV ONE (08:52)
--- NOTE | 2019-11-12 08:55 | ER Document Report ---
ED Headache - General Chief Complaint: Fainting Stated Complaint: FAINTED Time Seen by Provider: 11/12/19 08:28 Information source: Patient Notes: Patient presents complaining of migraine to bilateral scientologist area for the past 4 days. Patient states that the headache eases off and returns. Patient does report light sensitivity and nausea. Patient denies any vomiting. Patient states that she did have an episode around 2:00 in the morning in which she was sitting beside her who at the time was the patient in the hospital. Patient states that she passed out. Patient is uncertain if it was due to fatigue. Patient denies any chest pain or shortness of breath. TRAVEL OUTSIDE OF THE [place] IN LAST 30 DAYS: No - HPI Patient complains to provider of: Headache Onset: Other - 4 days Onset was: Gradual Timing: Still present Quality of pain: Sharp Pain Level: 5 Associated symptoms: Nausea/vomiting - Nausea, Photophobia. denies: Confusion, Double/blurred vision, Fever, Lightheaded, Stiff neck, Sweaty Exacerbated by: Light Similar symptoms previously: Yes Recently seen / treated by doctor: No - Related Data Allergies/Adverse Reactions: amoxicillin trihydrate [From Augmentin] Allergy (Verified 11/02/19 14:55) Potassium Clavulanate * [From Augmentin] Allergy (Verified 11/02/19 14:55) Past Medical History - General Information source: Patient - Social History Smoking Status: Former Smoker Frequency of alcohol use: Social Occupation: none Lives with: Family Family History: Reviewed & Not Pertinent, Other - ASTHMA Patient has suicidal ideation: No Patient has homicidal ideation: No Pulmonary Medical History: Reports: Hx Asthma Neurological Medical History: Reports: Hx Migraine Renal/ Medical History: Reports: Hx Ovarian Cysts. Denies: Hx Peritoneal Dialysis Skin Medical History: Reports Hx MRSA Psychiatric Medical History: Reports: Hx Depression Past Surgical History: Reports: Hx Adenoidectomy, Hx Section, Hx Orthopedic Surgery - Left shoulder x3, Hx Tonsillectomy - Immunizations Immunizations up to date: Yes Hx Diphtheria, Pertussis, Tetanus Vaccination: No Review of Systems - Review of Systems Constitutional: No symptoms reported. denies: Fever, Recent illness EENT: No symptoms reported Cardiovascular: Syncope - Actionable syncope versus falling asleep. denies: Chest pain, Dizziness, Lightheaded Respiratory: No symptoms reported Gastrointestinal: Nausea. denies: Abdominal pain, Vomiting Genitourinary: No symptoms reported Female Genitourinary: No symptoms reported Musculoskeletal: No symptoms reported. denies: Back pain, Neck pain Skin: No symptoms reported Hematologic/Lymphatic: No symptoms reported Neurological/Psychological: Headaches Physical Exam - Vital signs Vitals: Temp Pulse BP Pulse Ox 98.0 F 86 134/70 H 99 11/12/19 05:13 11/12/19 05:13 11/12/19 05:13 11/12/19 05:13 - General General appearance: Appears well, Other - Drowsy, arouses easily to voice - HEENT Head: Normocephalic, Atraumatic Eyes: Normal Conjunctiva: Normal Extraocular movements intact: Yes Pupils: PERRL Ears: Normal External canal: Normal Nasal: Normal Mouth/Lips: Normal Mucous membranes: Normal Neck: Normal, Supple. No: Brudzinski, Lymphadenopathy, Meningismus - Respiratory Respiratory status: No respiratory distress Chest status: Pain on movement Breath sounds: Normal. No: Rales, Rhonchi, Stridor, Wheezing Chest palpation: Normal - Cardiovascular Rhythm: Regular Heart sounds: S1 appreciated, S2 appreciated Murmur: No - Abdominal Inspection: Morbidly Obese Distension: No distension Bowel sounds: Normal - Back Back: Normal, Nontender. No: Vertebra tenderness - Extremities General upper extremity: Normal inspection, Normal strength General lower extremity: Normal inspection, Normal strength - Neurological Ludwig Coma Scale Eye Opening: Spontaneous Ludwig Coma Scale Verbal: Oriented [place] Coma Scale Motor: Obeys Commands Ludwig Coma Scale Total: 15 Speech: Normal. No: Dysarthria Cranial nerves: Normal. No: Facial palsy, Tongue deviation Cerebellar coordination: Normal Motor strength normal: LUE, RUE, LLE, RLE - Psychological Associated symptoms: Normal affect, Normal mood - Skin Skin Temperature: Warm Skin Moisture: Dry Skin Color: Normal Course - Re-evaluation Re-evalutation: 11/12/19 11:10 Patient states headache is still present but only to the left scientologist area at this time. Patient resting with eyes closed arouses easily to voice. 11/12/19 12:57 Patient reports headache pain is improved although not completely resolved. Patient has been sleeping throughout ER stay and arouses easily to voice. Patient without any meningeal irritation symptoms. 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 The patient is neurologically intact. Given the extremely low risk of these diagnoses further testing and evaluation for these possibilities does not appear to be indicated at this time. The patient has been instructed to return if the symptoms worsen or change in any way. - Vital Signs Vital signs: Temp Pulse Resp BP Pulse Ox 98.1 F 88 16 116/73 97 11/12/19 13:08 11/12/19 13:08 11/12/19 13:08 11/12/19 13:08 11/12/19 13:08 - Laboratory Result Diagrams: 11/12/19 09:55 11/12/19 09:55 Laboratory results interpreted by me: 11/12/19 09:55 RDW 14.8 H Labs- Entire Visit 11/12/19 11/12/19 11/12/19 09:55 09:55 09:55 WBC 7.1 RBC 4.54 Hgb 13.2 Hct 39.8 MCV 88 MCH 28.9 MCHC 33.0 RDW 14.8 H Plt Count 176 Lymph % (Auto) 37.4 [place] % (Auto) 9.3 Eos % (Auto) 1.2 Baso % (Auto) 0.4 Absolute Neuts (auto) 3.7 Absolute Lymphs (auto) 2.7 Absolute Monos (auto) 0.7 Absolute Eos (auto) 0.1 Absolute Basos (auto) 0.0 Seg Neutrophils % 51.7 Sodium 139.1 Potassium 3.9 Chloride 105 Carbon Dioxide 26 Anion Gap 8 BUN 16 Creatinine 0.71 Est GFR ( Amer) > 60 Est GFR (MDRD) Non-Af > 60 Glucose 79 Calcium 9.3 Serum HCG, Qual NEGATIVE Discharge - Discharge Clinical Impression: Headache Qualifiers: Headache type: unspecified Headache chronicity pattern: unspecified pattern Intractability: not intractable Qualified Code(s): R51 - Headache Condition: Stable Disposition: HOME, SELF-CARE Instructions: Intravenous Compazine for Headaches ([facility]), Use of Diphenhydramine, Headache ([facility]) Additional Instructions: Return immediately for any new or worsening symptoms Followup with your primary care provider, call tomorrow to make a followup appointment Increase oral fluids and stay well-hydrated Get regular sleep Prescriptions: Butalb/Acetaminophen/Caffeine [Fioricet (50-325-40 mg) Tablet] 1 - 2 tab PO Q4H PRN #12 each PRN Reason:
[2019-11-12 10:10] LABS: ABSOLUTE EOSINOPHILS # (AUTO) 0.1 10^3/uL (0.0-0.6); ABSOLUTE LYMPHOCYTES (AUTO) 2.7 10^3/uL (0.5-4.7); ABSOLUTE MONOCYTES (AUTO) 0.7 10^3/uL (0.1-1.4); ABSOLUTE NEUT (AUTO) 3.7 10^3/uL (1.7-8.2); BASOPHILS % (AUTO) 0.4 % (0-2); EOSINOPHILS % (AUTO) 1.2 % (0-6); HEMATOCRIT 39.8 % (36.0-47.0); HEMOGLOBIN 13.2 g/dL (12.0-15.5); LYMPHOCYTES % (AUTO) 37.4 % (13-45); MEAN CORPUSCULAR HEMOGLOBIN 28.9 pg (27.0-33.4); MEAN CORPUSCULAR VOLUME 88 fl (80-97); MONOCYTES % (AUTO) 9.3 % (3-13); PLATELET COUNT 176 10^3/uL (150-450); RED BLOOD COUNT 4.54 10^6/uL (3.72-5.28); RED CELL DISTRIBUTION WIDTH 14.8 % (11.5-14.0); SEGMENTED NEUTROPHILS % (AUTO) 51.7 % (42-78); TOTAL CELLS COUNTED % (AUTO) 100 %; WHITE BLOOD COUNT 7.1 10^3/uL (4.0-10.5)
[2019-11-12 10:30] LABS: ANION GAP 8 (5-19); BLOOD UREA NITROGEN 16 mg/dL (7-20); CALCIUM 9.3 mg/dL (8.4-10.2); CARBON DIOXIDE 26 mmol/L (22-30); CHLORIDE 105 mmol/L (98-107); GLUCOSE 79 mg/dL (75-110); POTASSIUM 3.9 mmol/L (3.6-5.0)
[2019-11-12] MEDS ORDERED: DEXAMETHASONE SOD PHOS INJ 10 MG/1 ML VIAL IV ONE (11:11)
[2019-11-12] MEDS ORDERED: MORPHINE SULFATE 10 MG/ML INJ IV ONE (11:11)
[2019-11-12 14:22] VITALS: BP 116/73
--- NOTE | 2019-11-12 20:06 | EKG REPORT ---
SEVERITY:- NORMAL ECG - SINUS RHYTHM : Confirmed by: Halina Leone MD 12-Nov-2019 20:05:48
== END 2019-11-12 13:08 | disposition home or self-care (01) ==
LOC: ER 04:44
DX: R51 Headache (principal); H53.149 Visual discomfort, unspecified; R11.0 Nausea; J45.909 Unspecified asthma, uncomplicated; Z88.0 Allergy status to penicillin; Z87.891 Personal history of nicotine dependence
CPT/HCPCS: 93005; 99284; 96361; 96374; 96375; 36415; 84703; 85025; 80048; 93010; J1200; J1885; J2270; J0780; J7030; J1100

== ENCOUNTER 2019-11-15 07:22 | Emergency (ER) | payer MEDICAID ==
[2019-11-15 10:24] LABS: ABSOLUTE LYMPHOCYTES (AUTO) 2.1 10^3/uL (0.5-4.7); ABSOLUTE MONOCYTES (AUTO) 0.8 10^3/uL (0.1-1.4); ABSOLUTE NEUT (AUTO) 6.7 10^3/uL (1.7-8.2); BASOPHILS % (AUTO) 0.3 % (0-2); EOSINOPHILS % (AUTO) 0.4 % (0-6); HEMATOCRIT 41.4 % (36.0-47.0); HEMOGLOBIN 13.6 g/dL (12.0-15.5); LYMPHOCYTES % (AUTO) 21.4 % (13-45); MEAN CORPUSCULAR HEMOGLOBIN 28.7 pg (27.0-33.4); MEAN CORPUSCULAR HGB CONC 32.8 g/dL (32.0-36.0); MEAN CORPUSCULAR VOLUME 88 fl (80-97); MONOCYTES % (AUTO) 8.4 % (3-13); PLATELET COUNT 194 10^3/uL (150-450); RED BLOOD COUNT 4.72 10^6/uL (3.72-5.28); RED CELL DISTRIBUTION WIDTH 14.6 % (11.5-14.0); SEGMENTED NEUTROPHILS % (AUTO) 69.5 % (42-78); TOTAL CELLS COUNTED % (AUTO) 100 %; WHITE BLOOD COUNT 9.7 10^3/uL (4.0-10.5)
[2019-11-15 10:25] LABS: APPEARANCE,URINE CLEAR; BILIRUBIN,URINE NEGATIVE (NEGATIVE); COLOR,URINE STRAW; GLUCOSE, URINE NEGATIVE (NEGATIVE); KETONES,URINE NEGATIVE (NEGATIVE); LEUKOCYTE ESTERASE,URINE NEGATIVE (NEGATIVE); NITRITE,URINE NEGATIVE (NEGATIVE); PROTEIN,URINE NEGATIVE (NEGATIVE); URINE SPECIFIC GRAVITY 1.011; UROBILINOGEN,URINE NEGATIVE mg/dL (<2.0)
[2019-11-15] MEDS ORDERED: KETOROLAC TROMETHAMINE 60 MG/2 ML SDV IM ONE (10:33)
[2019-11-15] MEDS ORDERED: ONDANSETRON 4 MG TAB.RAPDIS PO ONE (10:33)
--- NOTE | 2019-11-15 10:35 | ER Document Report ---
ED Medical Screen (RME) - General Chief Complaint: Flank Pain Stated Complaint: BACK PAIN Time Seen by Provider: 11/15/19 10:17 TRAVEL OUTSIDE OF THE [place] IN LAST 30 DAYS: No - HPI Notes: 11/15/19 10:34 I was asked to perform a brief eval on the patient in her room. Pt is complaining of right flank pain does not radiate and some abdominal discomfort in her right lower side near the scar. No fever, chest pain, shortness of breath. I have treated and performed a rapid initial assessment of this patient. A comprehensive ED assessment and evaluation of the patient, analysis of test results and completion of medical decision making process will be conducted by additional ED providers. PHYSICAL EXAMINATION: GENERAL: Well-appearing, well-nourished and in no acute distress. A&Ox4. Ans wers questions appropriately. Abd/back: limited exam. + mild tenderness rt lower abd near scar. + mild tenderness rt mid back to palp and minimally with CVA tenderness to percussion. - Related Data Allergies/Adverse Reactions: amoxicillin trihydrate [From Augmentin] Allergy (Verified 11/15/19 07:57) Potassium Clavulanate * [From Augmentin] Allergy (Verified 11/15/19 07:57) Past Medical History - Social History Chew tobacco use (# tins/day): No Frequency of alcohol use: None Drug Abuse: None Pulmonary Medical History: Reports: Hx Asthma Neurological Medical History: Reports: Hx Migraine Renal/ Medical History: Reports: Hx Ovarian Cysts. Denies: Hx Peritoneal Dialysis Skin Medical History: Reports Hx MRSA Psychiatric Medical History: Reports: Hx Depression Past Surgical History: Reports: Hx Adenoidectomy, Hx Section, Hx Orthopedic Surgery - Left shoulder x3, Hx Tonsillectomy - Immunizations Immunizations up to date: Yes Hx Diphtheria, Pertussis, Tetanus Vaccination: No Physical Exam - Vital signs Vitals: Temp Pulse Resp BP Pulse Ox 97.6 F 79 16 129/80 H 100 11/15/19 07:27 11/15/19 07:27 11/15/19 07:27 11/15/19 07:27 11/15/19 07:27 Course - Vital Signs Vital signs: Temp Pulse Resp BP Pulse Ox 97.6 F 79 16 129/80 H 100 11/15/19 07:27 11/15/19 07:27 11/15/19 07:27 11/15/19 07:27 11/15/19 07:27 - Laboratory Result Diagrams: 11/15/19 09:50 11/15/19 09:50 Laboratory results interpreted by me: 11/15/19 09:50 RDW 14.6 H
[2019-11-15 10:43] LABS: ALBUMIN 3.6 g/dL (3.5-5.0); ALKALINE PHOSPHATASE 111 U/L (38-126); ANION GAP 11 (5-19); ASPARTATE AMINO TRANSFERASE 22 U/L (14-36); BILIRUBIN,DIRECT 0.2 mg/dL (0.0-0.4); BILIRUBIN,TOTAL 0.3 mg/dL (0.2-1.3); BLOOD UREA NITROGEN 15 mg/dL (7-20); CALCIUM 9.1 mg/dL (8.4-10.2); CARBON DIOXIDE 24 mmol/L (22-30); CHLORIDE 103 mmol/L (98-107); GLUCOSE 81 mg/dL (75-110); POTASSIUM 4.1 mmol/L (3.6-5.0)
[2019-11-15] MEDS ORDERED: OXYCODONE-ACETAMINOPHEN 5-325 MG TABLET PO ONE (11:07)
[2019-11-15] MEDS ORDERED: ONDANSETRON ODT 4 MG TAB (6 TAB/ER DISP) PO PRN (11:08)
--- NOTE | 2019-11-15 11:15 | ER Document Report ---
ED General - General Chief Complaint: Flank Pain Stated Complaint: BACK PAIN Time Seen by Provider: 11/15/19 10:17 TRAVEL OUTSIDE OF THE [place] IN LAST 30 DAYS: No - HPI Notes: Patient is a 23-year-old female who presents emergency department for evaluation of pain in her right upper back. She states it started suddenly at about 5 AM. She describes it as what she thinks it would feel like to have your "back go out." It is worsened by movement. She is been laying on a heating pad, which is the only thing that has been giving her relief. She denies any chest pain or shortness of breath. She is had no calf swelling. No posterior calf tenderness. She denies any injury. She states she felt hot last night, but was unaware of any fevers or chills. She is not coughing. She did have one episode of emesis today. She denies any continued nausea. She did give about 3 months ago. She states her child is exclusively formula fed. - Related Data Allergies/Adverse Reactions: amoxicillin trihydrate [From Augmentin] Allergy (Verified 11/15/19 07:57) Potassium Clavulanate * [From Augmentin] Allergy (Verified 11/15/19 07:57) Past Medical History - General Information source: Patient - Social History Smoking Status: Former Smoker Chew tobacco use (# tins/day): No Frequency of alcohol use: None Drug Abuse: None Family History: Reviewed & Not Pertinent, Other - ASTHMA Patient has suicidal ideation: No Patient has homicidal ideation: No Pulmonary Medical History: Reports: Hx Asthma Neurological Medical History: Reports: Hx Migraine Renal/ Medical History: Reports: Hx Ovarian Cysts. Denies: Hx Peritoneal Dialysis Skin Medical History: Reports Hx MRSA Psychiatric Medical History: Reports: Hx Depression Past Surgical History: Reports: Hx Adenoidectomy, Hx Section, Hx Orthopedic Surgery - Left shoulder x3, Hx Tonsillectomy - Immunizations Immunizations up to date: Yes Hx Diphtheria, Pertussis, Tetanus Vaccination: No Review of Systems - Review of Systems Constitutional: See HPI EENT: No symptoms reported Cardiovascular: No symptoms reported Respiratory: No symptoms reported Gastrointestinal: See HPI Genitourinary: No symptoms reported Female Genitourinary: No symptoms reported Musculoskeletal: See HPI Skin: No symptoms reported Neurological/Psychological: No symptoms reported Physical Exam - Vital signs Vitals: Temp Pulse Resp BP Pulse Ox 97.6 F 79 16 129/80 H 100 11/15/19 07:27 11/15/19 07:27 11/15/19 07:27 11/15/19 07:27 11/15/19 07:27 - Notes Notes: Vital signs reviewed, please refer to chart. Head is normocephalic, atraumatic. Pupils equal round, reactive to light. Neck is supple without meningismus. Heart is regular rate and rhythm. Lungs are clear to auscultation bilaterally. Abdomen is soft, nontender, normoactive bowel sounds throughout. Examination of the spine yields no midline tenderness or step-off. She has paraspinal musculature tenderness noted through the thoracic spine, approximately T3 down through T8, and around the medial aspect of the scapula. No skin changes. Extremities without cyanosis, clubbing, edema. Posterior calves are nontender. Peripheral pulses are equal. Skin is warm and dry. Patient is awake, alert, neurological exam is nonfocal. Course - Re-evaluation Re-evalutation: 11/15/19 11:11 Patient presents emergency department for evaluation. She is noted to have right upper back pain. It seems to be musculoskeletal. It is worsened by palpation and movement, improved by heating. I do not have a clear etiology for her one episode of emesis. I will send her home with a small amount of Zofran. She is also sent with a prescription for muscle relaxer, anti-inflammatory. She is to follow-up with primary care next week, return to the ED with worsening or new concerning symptoms of any sort. - Vital Signs Vital signs: Temp Pulse Resp BP Pulse Ox 97.6 F 79 16 129/80 H 100 11/15/19 07:27 11/15/19 07:27 11/15/19 07:27 11/15/19 07:27 11/15/19 07:27 - Laboratory Result Diagrams: 11/15/19 09:50 11/15/19 09:50 Laboratory results interpreted by me: 11/15/19 09:50 RDW 14.6 H Discharge - Discharge Clinical Impression: Acute thoracic back pain Qualifiers: Back pain laterality: right Qualified Code(s): M54.6 - Pain in thoracic spine Nausea and vomiting Qualifiers: Vomiting type: unspecified Vomiting Intractability: non-intractable Qualified Code(s): R11.2 - Nausea with vomiting, unspecified Condition: Stable Disposition: HOME, SELF-CARE Instructions: Antinausea Medication ([facility]), Vomiting ([facility]), Muscle Strain ([facility]) Additional Instructions: Rest. Moist heat to the painful area. Take muscle relaxers and anti- inflammatories as prescribed for back pain, watch for drowsiness with the muscle relaxer. Take Zofran as needed for nausea. Stay hydrated with small, frequent sips of fluids. Follow-up with primary care next week. Return to the emergency department with worsening or new concerning symptoms of any sort.
[2019-11-15 11:24] VITALS: BP 127/58
== END 2019-11-15 11:29 | disposition home or self-care (01) ==
LOC: ER 07:22
DX: M54.6 Pain in thoracic spine (principal); R11.2 Nausea with vomiting, unspecified; R10.9 Unspecified abdominal pain; M54.9 Dorsalgia, unspecified; Z87.891 Personal history of nicotine dependence; J45.909 Unspecified asthma, uncomplicated
CPT/HCPCS: 99283; 96372; 36415; 83690; 85025; 80053; 81001; J1885; S0119

== ENCOUNTER 2020-11-12 20:21 | Emergency (ER) | payer MEDICAID ==
--- NOTE | 2020-11-12 21:33 | ER Document Report ---
ED Medical Screen (RME) - General Chief Complaint: Leg Swelling Stated Complaint: ANKLE PAIN Time Seen by Provider: 11/12/20 21:27 TRAVEL OUTSIDE OF THE [place] IN LAST 30 DAYS: No - HPI Notes: 11/12/20 21:34 24-year-old female presents to ED for evaluation of bilateral lower extremity swelling, left greater than right. Patient also reports increased dyspnea with exertion and ambulation. Patient states she has associated chest pain with this. 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 Denies trauma or injury. Denies nausea or vomiting. Denies history of CHF. - Related Data Allergies/Adverse Reactions: amoxicillin trihydrate [From Augmentin] Allergy (Verified 11/12/20 21:25) Potassium Clavulanate * [From Augmentin] Allergy (Verified 11/12/20 21:25) Home Medications: INHALER Past Medical History - Social History Frequency of alcohol use: None Drug Abuse: None Pulmonary Medical History: Reports: Hx Asthma Neurological Medical History: Reports: Hx Migraine Renal/ Medical History: Reports: Hx Ovarian Cysts. Denies: Hx Peritoneal Dialysis Skin Medical History: Reports Hx MRSA Psychiatric Medical History: Reports: Hx Depression Past Surgical History: Reports: Hx Adenoidectomy, Hx Section, Hx Orthopedic Surgery - Left shoulder x3, Hx Tonsillectomy - Immunizations Immunizations up to date: Yes Hx Diphtheria, Pertussis, Tetanus Vaccination: No Physical Exam - Vital signs Vitals: Temp Pulse Resp BP Pulse Ox 97.8 F 75 16 113/67 97 11/12/20 20:51 11/12/20 20:51 11/12/20 20:51 11/12/20 20:51 11/12/20 20:51 General: No acute distress. Alert and oriented x3. Sitting comfortably in a stretcher. Skin: Intact without any jaundice, pallor, or erythema. Warm and dry. Neck: Supple with no lymphadenopathy. Full range of motion. Heart: Regular rate and rhythm. S1,S2. No murmurs, rubs, or gallops. Lungs: Clear to ausculation bilaterally. No wheezes, rhonchi, rales. Equal chest expansion. No retractions. Abdomen: Soft, nontender to palpation, nondistended. Positive bowel sounds in all 4 quadrants. No hepatosplenomegaly. No masses. No CVA tenderness bilaterally. Neuro: GCS 15. Moving all extremities without discomfort. Extremities: Left calf tenderness with 1+ edema. No cyanosis or clubbing. Radial and pedal pulses 2+ bilaterally. Brisk capillary refill. Psych: Mood and affect appropriate. Course - Vital Signs Vital signs: Temp Pulse Resp BP Pulse Ox 97.8 F 75 16 113/67 97 11/12/20 20:51 11/12/20 20:51 11/12/20 20:51 11/12/20 20:51 11/12/20 20:51
--- NOTE | 2020-11-12 21:46 | EKG REPORT ---
SEVERITY:- BORDERLINE ECG - SINUS RHYTHM PROBABLE LEFT ATRIAL ABNORMALITY : Confirmed by: Kemal Aguilera MD 12-Nov-2020 21:45:37
--- NOTE | 2020-11-12 22:32 | RADIOLOGY REPORT (SQ) ---
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 Comparison: Chest radiograph performed 11/02/2019. Findings: The cardiomediastinal silhouette is normal in size. No pneumothorax is seen. No acute airspace opacities are seen. No discrete pleural effusion is apparent. Impression: No acute airspace opacities are seen.
[2020-11-12 23:35] LABS: ABSOLUTE EOSINOPHILS # (AUTO) 0.5 10^3/uL (0.0-0.6); ABSOLUTE LYMPHOCYTES (AUTO) 3.7 10^3/uL (0.5-4.7); ABSOLUTE MONOCYTES (AUTO) 0.8 10^3/uL (0.1-1.4); ABSOLUTE NEUT (AUTO) 5.5 10^3/uL (1.7-8.2); BASOPHILS % (AUTO) 0.4 % (0-2); EOSINOPHILS % (AUTO) 4.6 % (0-6); HEMATOCRIT 41.8 % (36.0-47.0); HEMOGLOBIN 13.8 g/dL (12.0-15.5); LYMPHOCYTES % (AUTO) 35.3 % (13-45); MEAN CORPUSCULAR HEMOGLOBIN 28.2 pg (27.0-33.4); MEAN CORPUSCULAR VOLUME 86 fl (80-97); MONOCYTES % (AUTO) 7.4 % (3-13); PLATELET COUNT 257 10^3/uL (150-450); RED BLOOD COUNT 4.89 10^6/uL (3.72-5.28); RED CELL DISTRIBUTION WIDTH 15.4 % (11.5-14.0); SEGMENTED NEUTROPHILS % (AUTO) 52.3 % (42-78); TOTAL CELLS COUNTED % (AUTO) 100 %; WHITE BLOOD COUNT 10.4 10^3/uL (4.0-10.5)
--- NOTE | 2020-11-12 23:35 | RADIOLOGY REPORT (SQ) ---
EXAM DESCRIPTION: US EXTREMITY VEINS UNILATERAL COMPLETED DATE/TME: 11/12/2020 23:12 CLINICAL HISTORY: 24 years, Female, left lower extremity swelling COMPARISON: None. TECHNIQUE: Grayscale, Doppler spectral analysis and Doppler color flow evaluation was performed using a dedicated transducer. Graded compression with augmentation were performed. LIMITATIONS: None. FINDINGS: The left lower extremity veins were sampled including the common femoral, femoral, proximal deep femoral, greater saphenous and popliteal veins. No echogenic filling defects are seen to suggest deep venous thrombosis. There is normal response to compression and augmentation. There are normal venous waveforms. IMPRESSION: No evidence of DVT within the left lower extremity as above. copyright 2010 [employer]- All Rights Reserved
[2020-11-12 23:55] LABS: ALBUMIN 2.9 g/dL (3.5-5.0); ALKALINE PHOSPHATASE 91 U/L (38-126); ASPARTATE AMINO TRANSFERASE 27 U/L (14-36); BILIRUBIN,DIRECT 0.1 mg/dL (0.0-0.4); BILIRUBIN,TOTAL 0.2 mg/dL (0.2-1.3); BLOOD UREA NITROGEN 12 mg/dL (7-20); CALCIUM 8.9 mg/dL (8.4-10.2); CARBON DIOXIDE 31 mmol/L (22-30); CHLORIDE 108 mmol/L (98-107); CREATINE KINASE 164 U/L (30-135); POTASSIUM 4.2 mmol/L (3.6-5.0); TOTAL PROTEIN 5.5 g/dL (6.3-8.2)
[2020-11-13 00:06] LABS: CREATINE KINASE MB 1.46 ng/mL (<4.55)
[2020-11-13 00:07] LABS: TROPONIN I < 0.012 ng/mL
[2020-11-13 00:15] LABS: ANION GAP 0 (5-19)
[2020-11-13 00:18] LABS: GLUCOSE 68 mg/dL (75-110)
[2020-11-13] MEDS ORDERED: KETOROLAC TROMETHAMINE 60 MG/2 ML SDV IM ONE (06:28)
--- NOTE | 2020-11-13 06:39 | ER Document Report ---
ED General - General Chief Complaint: Leg Swelling Stated Complaint: ANKLE PAIN Time Seen by Provider: 11/12/20 21:27 Primary Care Provider: [facility] [Provider Group] - Follow up as needed DEYSI ARMSTRONG MD [ACTIVE STAFF] - Follow up as needed PAT ORELLANA MD [ACTIVE STAFF] - Follow up as needed TRAVEL OUTSIDE OF THE [place] IN LAST 30 DAYS: No - HPI Notes: Patient is a 24-year-old female with a history of asthma who presents with bilateral ankle swelling for the past month. She states the swelling has worsened over the past 2 days, her left is greater than right. She also reports pain to her bilateral lower legs. She denies any recent injury or fall. She also reports two episodes of the last 2 days of headache, lightheadedness, and left-sided chest pain. Patient reports that her job is sedentary and her swelling gets worse throughout the day and improves after she lays down. She denies any prior history of blood clots, hormone use or recent travel. She denies fever, abdominal pain, nausea, vomiting, and shortness of breath. She has a history of ovarian cysts and depression. - Related Data Allergies/Adverse Reactions: amoxicillin trihydrate [From Augmentin] Allergy (Verified 11/12/20 21:25) Potassium Clavulanate * [From Augmentin] Allergy (Verified 11/12/20 21:25) Home Medications: INHALER Past Medical History - General Information source: Patient - Social History Smoking Status: Former Smoker Frequency of alcohol use: None Drug Abuse: None Family History: Reviewed & Not Pertinent, Other - ASTHMA Pulmonary Medical History: Reports: Hx Asthma Neurological Medical History: Reports: Hx Migraine Renal/ Medical History: Reports: Hx Ovarian Cysts. Denies: Hx Peritoneal Dialysis Skin Medical History: Reports Hx MRSA Psychiatric Medical History: Reports: Hx Depression Past Surgical History: Reports: Hx Adenoidectomy, Hx Section, Hx Orthopedic Surgery - Left shoulder x3, Hx Tonsillectomy - Immunizations Immunizations up to date: Yes Hx Diphtheria, Pertussis, Tetanus Vaccination: No Review of Systems - Review of Systems Constitutional: No symptoms reported EENT: No symptoms reported Cardiovascular: See HPI Respiratory: No symptoms reported Gastrointestinal: No symptoms reported Genitourinary: No symptoms reported Female Genitourinary: No symptoms reported Musculoskeletal: See HPI Skin: No symptoms reported Hematologic/Lymphatic: No symptoms reported Neurological/Psychological: See HPI Physical Exam - Vital signs Vitals: Temp Pulse Resp BP Pulse Ox 97.8 F 75 16 113/67 97 11/12/20 20:51 11/12/20 20:51 11/12/20 20:51 11/12/20 20:51 11/12/20 20:51 - Notes Notes: PHYSICAL EXAMINATION: VITALS: Vitals reviewed and within normal limits. GENERAL: Well-appearing, well-nourished and in no acute distress. HEAD: Atraumatic, normocephalic. EYES: Pupils equal, round, and reactive to light, extraocular movements intact, sclera anicteric, conjunctiva are normal. ENT: Nares patent. Moist mucous membranes. Oropharynx clear without exudates. NECK: Normal range of motion, supple without lymphadenopathy. LUNGS: Breath sounds clear to auscultation bilaterally and equal. No wheezes, rales, or rhonchi. HEART: Regular, rate, and rhythm without murmurs. CHEST WALL: Tenderness to left chest wall. No palpable step-offs or deformity. ABDOMEN: Soft, nontender, normoactive bowel sounds. No guarding, no rebound. No masses appreciated. EXTREMITIES: Normal range of motion, full strength of bilateral ankles. Mild non-pitting edema to bilateral lower extremities. No cyanosis. NEUROLOGICAL: No focal neurological deficits. Moves all extremities spontaneously and on command. PSYCH: Normal mood, normal affect. SKIN: Warm, Dry, normal turgor, no rashes or lesions noted. Course - Re-evaluation Re-evalutation: Patient is a 24 y/o female who presents with bilateral ankle swelling, left greater than right. She also reports episodes of chest pain, headache and lightheadedness. Vital signs are within normal limits. On exam, chest pain is reproducible with palpation and ankles are minimally swollen, non-pitting. CBC is unremarkable and within normal limits. CMP shows glucose of 68, patient given crackers and juice. CK is mildly elevated at 164. Troponin is negative. Chest XR is negative. Doppler US of left leg is negative with no evidence of DVT. Low clinical suspicion for ACS given clinical history, exam, EKG without ST elevations or depressions, and negative initial troponin. HEART score less than or equal to 3. PE also seems unlikely given clinical history, absence of tachycardia or dyspnea. Aortic dissection also seems unlikely given history, symmetric pulses, CXR, and vitals. Chest pain likely related to her cheset wall as the pain is reproducible with palpation. 60mg IM toradol given for pain relief. Clinical suspicion of dehydration/decreased PO intake based on mildly elevated CK and hypoglycemia which would account for her symptoms of headache and lightheadedness. As for the patient's chronic leg swelling, I advised that she follow up with PCP for further evaluation. Low clinical suspicion for emergent pathology as the cause of her leg swelling. I discussed with patient mackenzie alicea, based on their age, risk factors and emergency department testing today, the likelihood that their symptoms are related to a heart attack is very low (estimated risk of heart attack or over the next 30 days of less than 1%). The patient demonstrates decision making capacity and has verbalized an understanding of these risks to me. Return precautions and follow-up instructions given. The patient states understanding and agreement with this plan. Patient will be discharged home. - Vital Signs Vital signs: Temp Pulse Resp BP Pulse Ox 98.4 F 64 16 115/80 100 11/13/20 07:03 11/13/20 07:03 11/13/20 07:03 11/13/20 07:03 11/13/20 07:03 - Laboratory Results Result Diagrams: 11/12/20 23:15 11/12/20 23:15 Laboratory Results Interpreted: 11/12/20 11/12/20 23:15 23:15 RDW 15.4 H Chloride 108 H Carbon Dioxide 31 H Anion Gap 0 L Glucose 68 L Creatine Kinase 164 H Total Protein 5.5 L Albumin 2.9 L Critical Laboratory Results Reviewed: No Critical Results - Radiology Results Radiology Results Interpreted: Venous Doppler Study 11/12/20 21:33 IMPRESSION: No evidence of DVT within the left lower extremity as above. copyright 2010 [employer]- All Rights Reserved Critical Radiology Results Reviewed: No Critical Results Discharge - Discharge Clinical Impression: Leg swelling, Chest wall pain Headache Qualifiers: Headache type: unspecified Headache chronicity pattern: unspecified pattern Intractability: not intractable Qualified Code(s): R51.9 - Headache, unspecified Condition: Stable Disposition: HOME, SELF-CARE Instructions: Chest Wall Pain ([facility]), Dehydration ([facility]) Referrals: [facility] [Provider Group] - Follow up as needed DEYSI ARMSTRONG MD [ACTIVE STAFF] - Follow up as needed PAT ORELLANA MD [ACTIVE STAFF] - Follow up as needed
[2020-11-13 07:03] VITALS: BP 115/80
== END 2020-11-13 07:03 | disposition home or self-care (01) ==
LOC: EEVIPCON 20:21 → ER 20:21
DX: M25.472 Effusion, left ankle (principal); M25.471 Effusion, right ankle; M79.661 Pain in right lower leg; M79.662 Pain in left lower leg; R07.89 Other chest pain; E16.2 Hypoglycemia, unspecified; R51.9 Headache, unspecified; R42 Dizziness and giddiness; J45.909 Unspecified asthma, uncomplicated; Z79.899 Other long term (current) drug therapy; Z87.891 Personal history of nicotine dependence; Z88.0 Allergy status to penicillin
CPT/HCPCS: 93005; 99285; 96372; 36415; 82553; 82550; 85025; 80053; 84484; 93971; 71045; 93010; J1885